=== PATIENT | female | born 1960 | race African-American/Black ===

== ENCOUNTER 2025-01-03 14:35 | Outpatient (AMB) | payer MEDICARE, MEDICAID, SELFPAY ==
--- NOTE | 2025-01-03 14:42 | A.PHYSOV_ITS ---
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: No Allergies aspirin (ASA) Allergy (Unknown, Verified 01/03/25 14:44) GI, HIVES, throat swelling ibuprofen (From MOTRIN) Allergy (Unknown, Verified 01/03/25 14:44) SWELLING NSAIDS (Non-Steroidal Anti-Inflamma (NSAIDS (NON-STEROIDAL ANTI-INFLAMMA) Allergy (Unknown, Verified 01/03/25 14:44) GI,BURNING IN STOMACH NSAIDS Allergy (Unknown, Uncoded 01/03/25 14:44) Unknown Medication List - Last Reconciled 01/03/25 by Jed Brumfield DO albuterol sulfate 90 mcg/actuation 2 puffs inhalation Q6H PRN anastrozole 1 mg PO DAILY azelastine 1 spray intranasal BID calcium carbonate-vitamin D3 500 mg-5 mcg (200 unit) (Oyster Shell Calcium- Vitamin D3) 1 tab PO DAILY cholecalciferol (vitamin D3) (Vitamin D3) 25 mcg PO DAILY fentanyl 50 mcg/hr 1 patch topical Q OTHER DAY fluticasone propionate 50 mcg/actuation 1 spray intranasal BID folic acid 1 mg PO DAILY ketotifen fumarate 0.025%(0.035%) 1 drp ophthalmic (eye) BID PRN lidocaine 5% 1 patch topical DAILY PRN loratadine 10 mg PO DAILY PRN metoprolol succinate ER 12.5 mg PO DAILY mometasone 0.1% appl topical montelukast 10 mg PO BEDTIME morphine 15 mg PO QID olopatadine 0.1% 1 drp ophthalmic (eye) BID pregabalin 75 mg PO TID HPI Comments Details: History of Present Illness The patient is a 64-year-old female presenting with chronic pain management. She has been receiving narcotic pain management and has undergone multiple lumbar and cervical injections, including bilateral L4 transforaminal injections on May 01, 2024, and a cervical C7-T1 epidural injection on November 01, 2023. Her medication regimen includes fentanyl patches and immediate release morphine sulfate for breakthrough pain, with a recent discontinuation of slow-release morphine sulfate. The patient was informed of a positive biopsy for active cancer on September 03, 2024, and has scheduled follow-up appointments with her oncologist. She has undergone radiation therapy for a month and reports that the pain she experienced prior to surgery has subsided. The patient believes the pain was related to the cancer, as it disappeared following the removal of affected lymph nodes. 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 She describes a strong vibration sensation down the side of her neck, across the top of her head, and down the back on the left side, which she attributes to nerve involvement. The patient has not required neck injections for over a year, but she is considering them due to persistent symptoms. Her lumbar symptoms have been controlled better recently, unfortunately neck pain was severe a couple of months ago and continues to be quite disturbing none at this time. She reports radicular symptoms primarily on the left side. Pain Description - Onset and Timing: Chronic pain, persistent over time - Quality and Character: Described as a strong vibration sensation - Primary Location: Neck, with radiation across the top of the head and down the back on the left side - Exacerbating Factors: Prolonged positioning, such as sleeping in the same position - Relieving Factors: Pain subsided after radiation therapy and lymph node removal - Interference with Activities: Requires readjustment when using a phone due to pain Results - Imaging: MRI performed for worker's compensation case - Biopsy: Positive for active cancer [facility] Medical History (Updated 01/03/25 @ 15:43 by Jed Brumfield DO) Drug-induced polyneuropathy Lumbar radiculitis Neuropathy associated with malignant neoplasm Chronic pain syndrome Cervical radiculitis Surgical History History of cataract extraction (Unknown) History of mastectomy (Unknown) History of cancer surgery (Unknown) History of delivery (Unknown) Social History Alcohol intake: current Alcohol intake frequency: does not drink Patient Tobacco Use Status: Never used Tobacco Use of substances other than those prescribed or required for medical reasons: No Current occupational status: retired Review of Systems Narrative Review of Systems - Musculoskeletal: Reports chronic neck pain with radiation and vibration sensation - Neurological: Reports strong vibration sensation in neck and head Denies change in bowel bladder habits, denies fever or chills Physical Exam Exam Exam: Physical Exam Patient appears to be in no acute distress, appropriately conversant and oriented. She ambulates with a walker. Gait was waddling without antalgia. Lumbar range of motion was restricted in extension. Cervical range of motion was restricted in all planes. Spurling maneuver was positive on the left side. Lhermitte sign was negative. Both shoulders demonstrate normal range of motion today. Neurological examination of upper and lower extremities was nonfocal. Patient demonstrated an upper motor neuron signs. Vital Signs: BMI result Body Mass Index 43.4 Assessment & Plan Assessment & Plan (1) Cervical radiculitis: Code(s): M54.12 - Radiculopathy, cervical region Category: Medical (2) Chronic pain syndrome: Code(s): G89.4 - Chronic pain syndrome Category: Medical (3) Neuropathy associated with malignant neoplasm: Code(s): C80.1 - Malignant (primary) neoplasm, unspecified; G63 - Polyneuropathy in diseases classified elsewhere Category: Medical (4) Lumbar radiculitis: Code(s): M54.16 - Radiculopathy, lumbar region Category: Medical (5) Drug-induced polyneuropathy: Code(s): G62.0 - Drug-induced polyneuropathy Category: Medical Plan Pain Management - Affect: Pain impacts daily activities and requires medication management - Analgesia: Currently on fentanyl patches and immediate release morphine sulfate - Adverse Effects: Unable to tolerate oxycodone or oxycodone-containing medications - Activities of Daily Living: Pain affects ability to maintain prolonged positions - Aberrant Drug Related Behaviors: No aberrant behaviors reported Plan Patient was informed and verbally consented to the use of an ambient scribe for clinic note documentation during this visit. 1. Chronic Pain The patient will continue with her current pain management regimen, including fentanyl patches and immediate release morphine sulfate for breakthrough pain. Consideration for cervical epidural injections at C7-T1 to address persistent neck pain and vibration sensation. 2. Active Cancer The patient is under the care of an oncologist and has completed radiation therapy. Follow-up appointments with oncology are scheduled to monitor the statu s of her cancer. 3. Neural Foraminal Stenosis The patient reports persistent symptoms related to neural foraminal stenosis, including neck pain and vibration sensation. Consideration for cervical epidural injections to alleviate symptoms. Discussion Notes During the visit, we discussed the management of the patient's chronic pain, including the continuation of her current medication regimen with fentanyl patches and immediate release morphine sulfate. We also considered the option of cervical epidural injections to address her persistent neck pain and vibration sensation. The patient is aware of her active cancer diagnosis and is following up with her oncologist for ongoing management and monitoring. Patient Instructions - Continue using fentanyl patches and immediate release morphine sulfate as prescribed. - Follow up with your oncologist as scheduled for cancer management. - Consider cervical epidural injections if neck pain persists. - Report any new or worsening symptoms to your healthcare provider. Orders: Referrals Physiatry Procedure Notification M54.12 - Radiculopathy, cervical region Medications: New morphine Partial fill upon request 15 mg (1/2 x 30 mg) PO QID PRN 60 tabs 0RF pain 30 days C80.1 - Malignant (primary) neoplasm, unspecified, G63 - Polyneuropathy in diseases classified elsewhere, G89.4 - Chronic pain syndrome, M54.12 - Radiculopathy, cervical region, M54.16 - Radiculopathy, lumbar region fentanyl 50 mcg/hr Partial fill upon request 1 patch topical Q OTHER DAY 15 ea 0RF pain 30 days C80.1 - Malignant (primary) neoplasm, unspecified, G63 - Polyneuropathy in diseases classified elsewhere, G89.4 - Chronic pain syndrome, M54.12 - Radiculopathy, cervical region, M54.16 - Radiculopathy, lumbar region Coding Level of Care Code Est Pt Level 4 (55287) Complex EM visit Add On G2211 Diagnoses Cervical radiculitis M54.12 Chronic pain syndrome G89.4 Neuropathy associated with malignant neoplasm C80.1; G63 Lumbar radiculitis M54.16 Drug-induced polyneuropathy G62.0
[2025-01-03 14:43] VITALS: BMI 43.4
--- OUTSIDE RECORDS SUMMARY | 2025-01-03 17:59 | XMS_ITS ---
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 Name Role Phone Lillian Bowman MD Primary Care Provider [phone] Active Problems Problem Noted Date Diagnosed Date Malignant neoplasm of upper- outer quadrant of right breast in female, estrogen receptor positive ([facility] V24, [facility] V28) 10/18/2024 Malignant neoplasm of lower- outer quadrant of right breast of female, estrogen receptor positive ([facility] V24, [facility] V28) 09/05/2024 Cancer Staging:Pathologic:Stage IA(pT1c, pN1a, cM0, G2, ER+, ID+, HER2: Equivocal) - Unsigned Non-small cell lung cancer m etastatic to brain ([facility] V24, [facility] V28) 02/09/2024 Malignant neoplasm of upper lobe of right lung ([facility] V24, [facility] V28) 12/04/2016 Current Treatment and Therapy Plans CENTRAL VENOUS ACCESS ( CVA ) MAINTENANCE / BLOOD DRAW / CATHETER CLEARANCE / DRESSING CHANGE / FLUSH* Plan Start Date:10/16/2024 Plan Provider:Shala Mckay DO Linked Problems Malignant neoplasm of upper lobe of right lung ([facility] V24, [facility] V28)Non- small cell lung cancer metastatic to brain ([facility] V24, [facility] V28) Treatment Medications No medications scheduled. Past Treatment and Therapy Plans No past plan information found. Current Radiation Episodes * Radiation Therapy: BreastOverview* First Treatment Date Latest Treatment Date Treatment Site Technique Goal Episode Provider 11/08/2024 12/10/2024 Breast Curative Kyle Ray MD * Linked Problems Treatment Courses* Course 2 11/08/2024 - 12/10/2024 Treatment Sites Treatment Period Fraction Dose Fractions Total Dose Right Breast Boost 12/04/2024 - 12/10/2024 250 / 250 cGy 1,000 / 1,000 cGy Rt Breast 11/08/2024 - 12/03/2024 267 / 267 cGy 4,272 / 4,272 cGy
--- OUTSIDE RECORDS SUMMARY | 2025-01-03 17:59 | XMS_ITS | Encounter Summary ---
Author Organization [facility] Address [address] [place] [address] Care Team Providers Care Enterprise Application Administrator Name Role Phone Lillian Bowman MD Primary Care Provider [phone] Encounter Details Date Type Department Care Team (Late Contact Info) Description 04/24/2024 Lab Requisition [facility] - Main Lab [address] [facility] [place] [address] Jason Ordaz MD [address] [address] Urinary tract infection, site not specified; Hydronephrosis with renal and ureteral calculous obstruction Social History Tobacco Use Types Packs/Day Years Used Date Smoking Tobacco: Never Smokeless Tobacco: Never Alcohol Use Standard Drinks/Week Comments No 0 (1 standard drink = 0.6 oz pur e alcohol) Comments Unknown Sex and Gender Information Value Date Recorded Sex Assigned at Female 03/09/2024 1:17 PM EST Legal Sex Female 10:38 AM EST Gender Identity Female 03/09/2024 1:17 PM EST Sexual Orientation Straight 03/09/2024 1: 17 PM EST documented as of this encounter Plan of Treatment Upcoming Encounters Date Type Department Care Team (Late Contact Info) Description 01/30/2025 2:15 PM EST Office Visit Breast [facility] [address] [place] [address] Alana Valdez MD [address] [place] [address] 02/05/2025 2:15 PM EST Office Visit [facility] Hematology Oncology [address] [place] [phone] Shala Mckay DO [address] [place] [address] 02/05/2025 2:30 PM EST Appointment [facility] Infusion Center [address] [phone] 02/05/2025 3:00 PM EST Appointment [facility] Radiation Oncology [address] [place] [phone] Kyung Howell NP [address] [place], [place] [phone] documented as of this encounter Procedures Procedure Name Priority Date/Time Associated Diagnosis Comments CULTURE URINE Routine 04/24/2024 4:36 PM EST Urinary tract infection, site not specified Hydronephrosis with renal and ureteral calculous obstruction documented in this encounter Results * Culture urine (04/24/2024 4:36 PM EST) Culture, Urine No growth 04/25/2024 2:25 PM EST [facility] Urine Urine specimen obtained by clean catch procedure / Unknown 04/24/2024 4:36 PM EST 04/24/2024 6:15 PM EST us Jason Ordaz MD LAB MICROBIOLOGY - GENERA L ORDERABLES Final Result [facility] [address] [place] [address], documented in this encounter Visit Diagnoses Diagnosis Urinary tract infection, site not specified Hydronephrosis with renal and ureteral calculous obstruction documented in this encounter Care Teams Enterprise Application Administrator Relationship Specialty Start Date End Date Lillian Bowman MD [address] [place], [place] [phone] PCP - General Internal Medicine 05/17/24 documented as of this encounter
--- OUTSIDE RECORDS SUMMARY | 2025-01-03 17:59 | XMS_ITS | Patient Health Record ---
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 Name Role Phone Odell (RETIRED) Jose C NDIAYE Primary Care Provider Unavailable Gerardo Canales Jr Unavailable Allergies Allergen (clinical drug ingredient) Drug/Non Drug Allergy documented on EMR Reaction Allergy Type Onset Date Status Motrin Unknown Drug Allergy Active Lactose Unknown Drug Allergy Active aspirin Aspirin Unknown Drug Allergy Active Reason For Referral No Information Medications Medication SIG (Take, Route, Frequency, Duration) Notes Start Date End Date Status fentaNYL Citrate 100 MCG 1 tablet under the tongue as needed Bucally Four times a day Active Tamoxifen Citrate 20 MG 1 tablet Orally Once a day Active traMADol HCl 50 MG 1 tablet as needed Orally every 6 hrs Active Omeprazole 20 MG 1 capsule Orally Onc e a day Active Gabapentin 300 MG 1 capsule Orally Thr ee times a day Active Atenolol 25 MG 1 tablet Orally Once a day Active Colyte with Flavor Packs 240 GM As directed Orally Over the specified time.; Duration: 1 day(s) 08/22/2014 Active Zolpidem Tartrate Ac tive LORazepam Active ZyrTEC Allergy 10 MG 1 tablet as needed Orally Once a day Active Cyclobenzaprine HCl 5 MG 1 tablet Orally Three times a day Active Chlorzoxazone 500 MG 1 [address] Orally [address] ee times a day Active Problems Problem Type SNOMED Code ICD Code Onset Dates Problem Status W/U Status Risk Notes Problem Colon cancer screening (653996004) Colon cancer screening (V76.51) Active confirmed Problem Gastrointestinal tract problem (001076479) Abn findings-GI tract (793.4) Active confirmed Plan Of Treatment Future Test Test Name Order Date UPPER GI ENDOSCOPY 08/22/2014 COLONOSCOPY 08/22/2014 Insurance Providers Payer Name Payer Address Payer Phone Subscriber Number Group Number Insured Name Patient Relationship to Insured Coverage Start Date Coverage End Date [facility] [address] [address] [place], [place] [id number] CHRISTIANO CARABALLO Self - patient is the insured Medical (General) History Medical History History ICD Code fibromyalgia breast cancer asthma Surgical History Surgery Date(Month/Year) mastectomy-left breast 01/2012 section breast reduction 11/2011
--- OUTSIDE RECORDS SUMMARY | 2025-01-03 17:59 | XMS_ITS | Clinical Summary ---
Author Organization [facility] Address [address] [place] [address] Care Team Providers Care Belly Packer Name Role Phone Abelardo Cooley MD Primary Care Provider [phone] Allergies Active Allergy Reactions Criticality Noted Date Comments Aspirin Anaphylaxis High 11/30/2016 Ibuprofen Anaphylaxis High 11/30/2016 Lactose Other (See Comments) 07/07/2017 Other reaction(s): diarrhea, nausea Abdominal pain Nsaids 05/17/2023 Medications Medication Sig Dispensed Refills Start Date End Date Status folic acid (FOLVITE) tablet 1 mg take 1 tablet by mouth once daily 30 tablet 3 09/12/2017 Active montelukast (SINGULAIR) 10 MG tablet Take 1 tablet (10 mg total) by mouth every night at bedtime. 0 Active metoprolol tartrate (LOPRESSOR) 12.5 MG split tablet Take 1 split tablet (12.5 mg total) by mouth daily. 12.5mg 0 Active Lidocaine 4 % PTCH Apply topically. 0 Active Morphine Sulfate ER (MS CONTIN) 15 MG TBCR Take 1 tablet (15 mg total) by mouth every 12 (twelve) hours. 60 tablet 0 05/14/2020 Active morphine (MSIR) 15 MG tablet Take 1 tablet (15 mg total) by mouth 4 (four) times a day. 60 tablet 0 06/17/2020 Active Morphine Sulfate ER (MS CONTIN) 30 MG TBCR Take 1 tablet (30 mg total) by mouth every 12 (twelve) hours. 60 tablet 0 06/17/2020 Active fentaNYL (DURAGESIC) 50 MCG/HR Place 1 patch onto the skin every third day. 10 patch 0 08/07/2020 Active pregabalin (LYRICA) capsule 50 mg Take 1 capsule (50 mg total) by mouth 2 (two) times a day. 0 Active omeprazole (PriLOSEC) 20 MG capsule Take 1 capsule (20 mg total) by mouth daily. 0 Active albuterol (PROVENTIL) (2.5 MG/3ML) 0.083% nebulizer solution Take 3 mL (2.5 mg total) by nebulization every 6 (six) hours as needed for wheezing. 0 Active lidocaine-prilocai ne (EMLA) cream APPLY TO AFFECTED AREA EVERY DAY NEEDED 30 g 1 02/22/2023 Active Cholecalciferol (Vitamin D) 25 MCG (1000 UT) TABS Take 1 tablet by mouth daily. 90 tablet 0 11/22/2023 Active Active Problems Problem Noted Date Diagnosed Date Malignant neoplasm of overlapping sites of lung 12/04/2016 Family History Medical History Relation Name Comments Diabetes Father Cancer Mother lung Relation Name Status Comments Father Mother Social History Tobacco Use Types Packs/Day Years Used Date Smoking Tobacco: Never Smokeless Tobacco: Never Alcohol Use Standard Drinks/Week Comments No 0 (1 standard drink = 0.6 oz pur e alcohol) Sex and Gender Information Value Date Recorded Sex Assigned at Female 07/30/2022 8:28 AM EDT Gender Identity Not on file Sexual Orientation Not on file Job Start Date Occupation Industry Not on file Not on file Not on file Last Filed Vital Signs Vital Sign Reading Time Taken Comments Blood Pressure 136/68 11/15/2023 2:55 PM EDT Pulse 90 11/15/2023 2:55 PM EDT Temperature 36.4 C (97.5 F) 11/15/2023 2:55 PM EDT Respiratory Rate - - Oxygen Saturation 99% 11/15/2023 2:55 PM EDT 2L 02 Inhaled Oxygen Concentration - - Weight 112 kg (247 lb) 11/15/2023 2:55 PM EDT Height 160 cm (5' 3 ) 11/15/2023 2:55 PM EDT Body Mass Index 43.75 11/15/2023 2:55 PM EDT Plan of Treatment Health Maintenance Due Date Last Done Comments Hepatitis C Screening 1960 COVID-19 Vaccine (#1) 04/28/1964 Depression Screening 1971 BMI Counseling 04/28/1977 Preventative Health Evaluation 04/28/1977 DTap / Tdap / Td (1 - Tdap) 04/28/1978 Shingrix-Zoster Vaccine (1 of 2) 04/28/1978 Cervical Cancer Screening (P ap Smear) 04/28/1980 Colon Cancer Screening (Colonoscopy) 04/28/2004 Breast Cancer Screening (Mammogram) 04/28/2009 Pneumococcal Vaccine (2 of 2 - PCV) 01/20/2017 01/21/2016 Pneumococcal Vaccine (2 of 2 - PCV) 01/20/2017 01/21/2016 Fall Risk Assessment 04/28/2024 Osteoporosis Screening (DEXA Scan) 04/28/2024 Influenza Vaccine (#1) 2024 RSV Adult > 60+ Yrs or Pregn ant (1 - 1-dose 75+ series) 04/28/2034 Hepatitis B Vaccines Aged Out No long er eligible based on patient's age to complete this topic RSV Ped < 20 months Aged Out No longe r eligible based on patient's age to complete this topic Insurance Payer Benefit Plan / Group Subscriber ID Effective Dates Phone Address [facility] [id number] 2022-Present [address] [facility] [address] [place] [address] [facility] [place] Belly Packer Relationship Specialty Start Date End Date Abelardo Cooley MD [address] [address] PCP - General Internal Medicine 11/30/16
--- OUTSIDE RECORDS SUMMARY | 2025-01-03 17:59 | XMS_ITS | Clinical Summary ---
Author Organization [facility] Address [address] [place] [address] Phone Care Team Providers Care Screw Supervisor Name Role Phone Lillian Bowman MD Primary Care Provider [phone] Allergies Active Allergy Reactions Criticality Noted Date Comments Aspirin Anaphylaxis,Other High 11/30/2016 Throat swelling Ibuprofen Anaphylaxis,Other High 11/30/2016 Throat swelling Any NSAIDS Lactose Other Low 07/07/2017 Other reaction(s): diarrhea, nausea Abdominal pain Nsaids (Non-Steroidal Anti-Inflammatory Drug) Anaphylaxis High 05/17/2023 Medications albuterol 2.5 mg /3 mL (0.083 %) nebulizer solution 3 mL (2.5 mg total) every 6 (six) hours if needed. Active fentaNYL (DURAGESIC) 50 mcg/hr 1 patch 2 (two) times a day if needed. 07/05/19 21 Active folic acid (FOLVITE) 1 mg tablet Take 1 tablet (1 mg total) by mouth 1 (one) time each day. 09/13/19 18 Active lidocaine 4 % patch 1 patch 1 (one) time each day if needed. Active lidocaine-pril ocaine (EMLA) 2.5-2.5 % cream APPLY TO AFFECTED AREA EVERY DAY NEEDED 02/22/19 24 Active metoprolol tartrate (LOPRESSOR) 25 mg tablet Take 0.5 tablets (12.5 mg total) by mouth 2 (two) times a day. Active montelukast (SINGULAIR) 10 mg tablet Take 1 tablet (10 mg total) by mouth at bedtime. Active morphine (MSIR) 15 mg tablet 04/05/19 Active morphine (MS CONTIN) 15 mg 12 hr tablet 1 tablet (15 mg total) at bedtime as needed (pt can have morphine 2x a day only takes at bedtime). 05/15/19 Active morphine (MS CONTIN) 30 mg 12 hr tablet Take 1 tablet (30 mg total) by mouth every 12 (twelve) hours. 06/18/19 Active omeprazole (PriLOSEC) [address] capsule 1 capsule (20 mg total) 1 (one) time each day if needed. Active pregabalin (LYRICA) 50 mg capsule Take 3 capsules (150 mg total) by mouth at bedtime. 07/18/19 Active anastrozole (ARIMIDEX) 1 mg Take 1 tablet (1 mg total) by mouth 1 (one) time each day Swallow whole with a drink of water. 90 tablet 3 11/21/19 25 026 Active calcium carbonate-uma min D 500 mg-5 mcg (200 unit) per tablet Take 1 tablet by mouth 1 (one) time each day. 30 each 11 11/21/19 25 026 Active mometasone (ELOCON) 0.1 % creamIndicatio ns:Radiation dermatitis Apply topically 2 (two) times a day for 28 days. Apply to radiation treatment field on RIGHT WHOLE BREAST. Then apply home moisturizing cream as needed. 45 g 1 11/24/19 25 Active Vitamin D3 25 mcg (1,000 unit) tablet TAKE 1 TABLET BY MOUTH EVERY DAY 90 tablet 01/01/20 25 Active Vitamin D3 25 mcg (1,000 unit) tablet TAKE 1 TABLET BY MOUTH EVERY DAY 90 tablet 10/02/19 25 025 Discontinued Active Problems Problem Noted Date Diagnosed Date Malignant neoplasm of upper- outer quadrant of right breast in female, estrogen receptor positive (CMS/HCC V24, CMS/HCC V28) 10/18/2024 Malignant neoplasm of lower- outer quadrant of right breast of female, estrogen receptor positive (CMS/HCC V24, CMS/HCC V28) 09/05/2024 Cancer Staging:Pathologic:Stage IA(pT1c, pN1a, cM0, G2, ER+, MA+, HER2: Equivocal) - Unsigned Non-small cell lung cancer m etastatic to brain ([facility] V24, [facility] V28) 02/09/2024 Malignant neoplasm of upper lobe of right lung ([facility] V24, [facility] V28) 12/04/2016 Encounters Date Type Department Care Team Description 12/10/2024 2:50 PM EDT - 12/10/2024 11:59 PM EDT Hospital Encounter [facility] Radiation Oncology [address] [place] [phone] Kyung Howell, GUALBERTO Malignant neoplasm of lower-outer quadrant of right breast of female, estrogen receptor positive ([facility] V24, [facility] V28) (Primary Dx) Discharge Disposition: Home or Self Care 12/10/2024 2:09 PM EDT - 12/10/2024 11:59 PM EDT Hospital Encounter [facility] Radiation Oncology [address] [place] [phone] Discharge Disposition: Home or Self Care 12/07/2024 2:30 PM EDT - 12/07/2024 11:59 PM EDT Hospital Encounter [facility] Radiation Oncology [address] [place] [phone] Kyle Ray MD Malignant neoplasm of lower-inner quadrant of right breast of female, estrogen receptor positive ([facility] V24, [facility] V28) (Primary Dx) Discharge Disposition: Home or Self Care 12/07/2024 2:15 PM EDT - 12/07/2024 11:59 PM EDT Hospital Encounter [facility] Radiation Oncology [address] [place] [phone] Discharge Disposition: Home or Self Care 12/06/2024 1:56 PM EDT - 12/06/2024 11:59 PM EDT Hospital Encounter [facility] Radiation Oncology [address] [place] [phone] Discharge Disposition: Home or Self Care 12/04/2024 2:45 PM EDT - 12/04/2024 11:59 PM EDT Hospital Encounter [facility] Radiation Oncology [address] [place] [phone] Davy Ryder MD Discharge Disposition: Home or Self Care 12/04/2024 2:27 PM EDT - 12/04/2024 11:59 PM EDT Hospital Encounter [facility] Radiation Oncology [address] [place] [phone] Discharge Disposition: Home or Self Care 12/03/2024 2:40 PM EDT - 12/03/2024 11:59 PM EDT Hospital Encounter [facility] Radiation Oncology [address] [place] [phone] Kyle Ray MD Malignant neoplasm of lower-inner quadrant of right breast of female, estrogen receptor positive (CMS/HCC V24, CMS/HCC V28) (Primary Dx) Discharge Disposition: Home or Self Care 12/03/2024 2:03 PM EDT - 12/03/2024 11:59 PM EDT Hospital Encounter [facility] Radiation Oncology [address] [place] [phone] Discharge Disposition: Home or Self Care 11/30/2024 2:06 PM EDT - 11/30/2024 11:59 PM EDT Hospital Encounter [facility]iation Oncology [address] [place] [phone] Discharge Disposition: Home or Self Care 11/29/2024 2:01 PM EDT - 11/29/2024 11:59 PM EDT Hospital Encounter [facility] Radiation Oncology [address] [place] [phone] Discharge Disposition: Home or Self Care 11/28/2024 2:12 PM EDT - 11/28/2024 11:59 PM EDT Hospital Encounter [facility] Radiation [facility]cology [address] [place] [phone] Discharge Disposition: Home or Self Care 11/27/2024 2:30 PM EDT - 11/27/2024 11:59 PM EDT Hospital Encounter [facility] Radiation Oncology [address] [place] [phone] Discharge Disposition: Home or Self Care 11/27/2024 11:38 AM EDT - 11/27/2024 11:59 PM EDT Hospital Encounter [facility] Radiation Oncology [address] [place] [phone] Discharge Disposition: Home or Self Care 11/26/2024 2:12 PM EDT - 11/26/2024 11:59 PM EDT Hospital Encounter [facility] Radiation Oncology [address] [place] [phone] Discharge Disposition: Home or Self Care 11/23/2024 2:40 PM EDT - 11/23/2024 11:59 PM EDT Hospital Encounter [facility] Radiation Oncology [address] [place] [phone] Kyle Ray MD Malignant neoplasm of lower-inner quadrant of right breast of female, estrogen receptor positive (CMS/HCC V24, CMS/HCC V28) (Primary Dx) Discharge Disposition: Home or Self Care 11/23/2024 2:06 PM EDT - 11/23/2024 11:59 PM EDT Hospital Encounter [facility] Radiation Oncology [address] [place] [phone] Discharge Disposition: Home or Self Care 11/22/2024 2:06 PM EDT - 11/22/2024 11:59 PM EDT Hospital Encounter [facility] Radiation Oncology [address] [place] [phone] Discharge Disposition: Home or Self Care 11/21/2024 2:06 PM EDT - 11/21/2024 11:59 PM EDT Hospital Encounter [facility] Radiation Oncology [address] [place] [phone] Discharge Disposition: Home or Self Care 11/20/2024 3:00 PM EDT - 11/20/2024 11:59 PM EDT Hospital Encounter [facility] [address] [place] [phone] Shala Mckay DO Malignant neoplasm of lower-outer quadrant of right breast of female, estrogen receptor positive (CMS/HCC V24, CMS/HCC V28) (Primary Dx); Malignant neoplasm of upper lobe of right lung (CMS/HCC V24, CMS/HCC V28); Non-small cell lung cancer metastatic to brain ([facility] V24, [facility] V28) Discharge Disposition: Home or Self Care 11/20/2024 2:30 PM EDT Office Visit [facility] Hematology Oncology [address] [place] [phone] Shala Mckay DO Malignant neoplasm of right breast in female, estrogen receptor positive, unspecified site of breast ([facility] V24, [facility] V28) (Primary Dx); Malignant neoplasm of upper lobe of right lung ([facility] V24, [facility] V28); Osteopenia of neck of femur, unspecified laterality; Vitamin D deficiency 11/20/2024 1:08 PM EDT - 11/20/2024 11:59 PM EDT Hospital Encounter [facility] Radiation Oncology [address] [place] [phone] Discharge Disposition: Home or Self Care 11/19/2024 2:15 PM EDT - 11/19/2024 11:59 PM EDT Hospital Encounter [facility] Radiation Oncology [address] [place] [phone] Discharge Disposition: Home or Self Care 11/16/2024 2:29 PM EDT - 11/16/2024 11:59 PM EDT Hospital Encounter [facility] Radiation Oncology [address] [place] [phone] Kyle Ray MD Malignant neoplasm of lower-inner quadrant of right breast of female, estrogen receptor positive ([facility] V24, [facility] V28) (Primary Dx) Discharge Disposition: Home or Self Care 11/16/2024 2:02 PM EDT - 11/16/2024 11:59 PM EDT Hospital Encounter [facility] Radiation Oncology [address] [place] [phone] Discharge Disposition: Home or Self Care 11/15/2024 2:12 PM EDT - 11/15/2024 11:59 PM EDT Hospital Encounter [facility] Radiation Oncology [address] [place] [phone] Discharge Disposition: Home or Self Care 11/14/2024 2:45 PM EDT - 11/14/2024 11:59 PM EDT Hospital Encounter [facility] Radiation Oncology [address] [place] [phone] Discharge Disposition: Home or Self Care 11/14/2024 2:15 PM EDT - 11/14/2024 11:59 PM EDT Hospital Encounter [facility] Radiation Oncology [address] [place] [phone] Kyle Ray MD Malignant neoplasm of lower-inner quadrant of right breast of female, estrogen receptor positive (CMS/HCC V24, CMS/HCC V28) (Primary Dx) Discharge Disposition: Home or Self Care 11/12/2024 2:56 PM EDT - 11/12/2024 11:59 PM EDT Hospital Encounter [facility] Ultrasound [address] [place] [phone] Malignant neoplasm of lower-outer quadrant of right breast of female, estrogen receptor positive (CMS/HCC V24, CMS/HCC V28) Discharge Disposition: Home or Self Care 11/12/2024 2:13 PM EDT - 11/12/2024 11:59 PM EDT Hospital Encounter [facility] Radiation Oncology [address] [place] [phone] Kyle Ray MD Malignant neoplasm of lower-inner quadrant of right breast of female, estrogen receptor positive (CMS/HCC V24, CMS/HCC V28) (Primary Dx) Discharge Disposition: Home or Self Care 11/12/[address] [phone] Linda Mcrae RN 11/09/2024 2:19 PM EDT - 11/09/2024 11:59 PM EDT Hospital Encounter [facility] Radiation Oncology [address] [place] [phone] Discharge Disposition: Home or Self Care 11/08/2024 2:45 PM EDT - 11/08/2024 11:59 PM EDT Hospital Encounter [facility] Radiation Oncology [address] [place] [phone] Kyle aRy MD Discharge Disposition: Home or Self Care 11/08/2024 2:40 PM EDT - 11/08/2024 11:59 PM EDT Hospital Encounter [facility] Radiation Oncology [address] [place] [phone] Kyle Ray MD Malignant neoplasm of lower-inner quadrant of right breast of female, estrogen receptor positive (CMS/HCC V24, CMS/HCC V28) (Primary Dx) Discharge Disposition: Home or Self Care 11/08/2024 2:16 PM EDT - 11/08/2024 11:59 PM EDT Hospital Encounter [facility] Radiation Oncology [address] [place] [phone] Discharge Disposition: Home or Self Care 11/02/2024 8:12 AM EDT - 11/02/2024 11:59 PM EDT Hospital Encounter [facility] Radiation Oncology [address] [place] [phone] Discharge Disposition: Home or Self Care 11/01/2024 1:00 PM EDT - 11/01/2024 11:59 PM EDT Hospital Encounter [facility] Radiation Oncology [address] [place] [phone] July Montesinos MD Malignant neoplasm of upper-outer quadrant of right breast in female, estrogen receptor positive (CMS/HCC V24, CMS/HCC V28) Discharge Disposition: Home or Self Care 11/01/2024 10:59 AM EDT - 11/01/2024 11:59 PM EDT Hospital Encounter [facility] Radiation Oncology [address] [place] [phone] Malignant neoplasm of upper-outer quadrant of right breast in female, estrogen receptor positive (CMS/HCC V24, CMS/HCC V28) (Primary Dx) Discharge Disposition: Home or Self Care 11/01/2024 9:48 AM EDT - 11/01/2024 11:59 PM EDT Hospital Encounter [facility] Bone Density [address] [place] [phone] Malignant neoplasm of right breast in female, estrogen receptor positive, unspecified site of breast (CMS/HCC V24, CMS/HCC V28); Malignant neoplasm of upper lobe of right lung (CMS/HCC V24, CMS/HCC V28) Discharge Disposition: Home or Self Care 10/29/2024 Telephone [facility] Hematology Oncology [address] [place] [phone] Shala Mckay DO 10/18/2024 1:23 PM EDT - 10/18/2024 11:59 PM EDT Hospital Encounter [facility] Radiation Oncology [address] [place] [phone] July Montesinos MD Malignant neoplasm of upper-outer quadrant of right breast in female, estrogen receptor positive (CMS/HCC V24, CMS/HCC V28) (Primary Dx); Malignant neoplasm of lower-outer quadrant of right breast of female, estrogen receptor positive (CMS/HCC V24, CMS/HCC V28); History of left breast cancer; History of antineoplastic chemotherapy; History of bilateral breast reduction surgery; History of left breast implant; History of cancer metastatic to brain; History of lung cancer; History of lobectomy of lung Discharge Disposition: Home or Self Care 10/18/2024 1:22 PM EDT - 10/18/2024 11:59 PM EDT Hospital Encounter [facility] Radiation Oncology [address] [place] [phone] Discharge Disposition: Home or Self Care 10/16/2024 3:00 PM EDT - 10/16/2024 11:59 PM EDT Hospital Encounter [facility] [address] [place] [phone] Shala Mckay DO Malignant neoplasm of lower-outer quadrant of right breast of female, estrogen receptor positive (CMS/HCC V24, CMS/HCC V28) [C50.511, Z17.0] (Primary Dx); Malignant neoplasm of upper lobe of right lung (CMS/HCC V24, CMS/HCC V28); Non-small cell lung cancer metastatic to brain (CMS/HCC V24, CMS/HCC V28) Discharge Disposition: Home or Self Care 10/16/2024 2:30 PM EDT Office Visit [facility] Hematology Oncology [address] [place] [phone] Shala Mckay DO Malignant neoplasm of right breast in female, estrogen receptor positive, unspecified site of breast ([facility]/HCC V24, [facility] V28) (Primary Dx); Malignant neoplasm of upper lobe of right lung ([facility]/HCC V24, [facility]/HCC V28) 10/16/2024 [facility] Hematology Oncology [address] [place] [phone] Alexia Leone RN 10/11/2024 [facility] Radiation Oncology [address] [place] [phone] Jeanie [place] 10/04/2024 [facility] Radiation Oncology [address] [place] [phone] Jean[place] 10/04/2024 [facility] Radiation Oncology [address] [place] [phone] Jeanie [place] 10/04/2024 [facility] Radiation Oncology [address] [place] [phone] Jeanie [place] 10/03/2024 3:45 PM EDT Office Visit [address] [phone] Alana Valdez MD Malignant neoplasm of lower-outer quadrant of right breast of female, estrogen receptor positive ([facility] V24, [facility] V28) (Primary Dx) 10/03/2024 2:27 PM EDT - 10/03/2024 11:59 PM EDT Hospital Encounter [facility] CT Scan [address] [place] [phone] Malignant neoplasm of upper lobe of right lung ([facility]/HCC V24, [facility] V28); Non-small cell lung cancer metastatic to brain ([facility] V24, [facility] V28) Discharge Disposition: Home or Self Care from Last 3 Months Surgical History Surgery Date Site/Laterality Comments MASTECTOMY Left PROCEDURE:MASTECTOMY LUNG LOBECTOMY Right CRANIOTOMY MA BREAST REDUCTION STEREOTACTIC CORE BIOPSY OTHER SURGICAL HISTORY breast reduction SECTION, LOW TRANSVERSE 2 Medical History Medical History Date Comments Lung cancer ([facility] V24, [facility] V28) stage 4 lung cancer, RIGHT LUNG, CHEMO RADIATION Breast cancer ([facility] V24, [facility] V28) DX:Breast cancer (HCC), LEFT DVT (deep venous thrombosis) ([facility] V24, [facility] V28) DX:DVT (deep venous thrombos is) ([facility]) Fibromyalgia DX:Fibromyalgia GERD (gastroesophageal reflux disease) DX:GERD (gastroesophageal reflux disease) Neuropathy Asthma PTSD (post-traumatic stress disorder) Chronic pain disorder Joint pain Brain cancer ([facility] V24, [facility] V28) Family History Medical History Relation Name Comments Diabetes Father Cancer Mother lung Relation Name Status Comments Father Maternal Grandmother ? [place] Mother Sister 1 sister had ? Lukemia1 sister pancreatic Social History Tobacco Use Types Packs/Day Years Used Date Smoking Tobacco: Former Cigarettes 0 Q uit: 2004 Smokeless Tobacco: Never Tobacco Cessation:Counseling Given: Not Answered Alcohol Use Standard Drinks/Week Comments No 0 (1 standard drink = 0.6 oz pur e alcohol) Comments No Sex and Gender Information Value Date Recorded Sex Assigned at Female 03/09/2024 1:17 PM EST Legal Sex Female 10:38 AM EST Gender Identity Female 03/09/2024 1:17 PM EST Sexual Orientation Straight 03/09/2024 1: 17 PM EST Obstetrics History Para Term AB IAB SAB Ectopic Multiple Livin g Live Births 2 2 Date Outcome GA Total Labor Labor/2nd/3rd Weight Sex Type Anes PTL Willa A1 A5 Name Clin Para Para Last Filed Vital Signs Vital Sign Reading Time Taken Comments Blood Pressure 142/110 11/20/2024 2:38 PM EDT Pulse 99 11/20/2024 2:38 PM EDT Temperature 36.6 C (97.9 F) 11/20/2024 2:38 PM EDT Respiratory Rate 17 10/18/2024 1:44 PM EDT Oxygen Saturation 100% 11/20/2024 2:38 PM EDT Inhaled Oxygen Concentration - - Weight 113 kg (250 lb) 11/20/2024 2:38 PM EDT Height 160 cm (5' 3 ) 11/20/2024 2:38 PM EDT Body Mass Index 44.29 11/20/2024 2:38 PM EDT Plan of Treatment Upcoming Encounters Date Type Department Care Team (Late st Contact Info) Description 01/30/2025 2:15 PM EST Office Visit Breast Care [address] [phone] Alana Valdez MD [address] [place] [phone] 02/05/2025 2:15 PM EST Office Visit [facility] Hematology Oncology [address] [place] [phone] Shala Mckay DO [address] [place] [address] 02/05/2025 2:30 PM EST Appointment [facility] [address] [place] [phone] 02/05/2025 3:00 PM EST Appointment [facility] Radiation Oncology [address] [place] [phone] Kyung Howell NP [address] [place] [address] Health Maintenance Due Date Last Done Comments Colorectal Cancer Screening: Colonoscopy 1960 COVID-19 Vaccine (#1) 04/28/1964 DTaP,Tdap,and Td Vaccines (1 - Tdap) 04/28/1978 Hepatitis A Vaccines (1 of 2 - Risk 2-dose series) 04/28/1978 Zoster Vaccines (1 of 2) 04/28/1978 Cervical Cancer Screening: P ap Smear 04/28/1980 RSV Immunization Adult Patie nts (1 - Risk 50-74 years 1-dose series) 04/28/2009 Pneumococcal Vaccine: 50+ Ye ars (2 of 2 - PCV) 01/20/2017 01/21/2016 Hepatitis B Vaccines (1 of 3 - Risk 3-dose series) 2019 Cholesterol Screening (Lipid Panel) 01/29/2022 Hepatitis C Screening 01/29/2022 Medicare Annual Wellness Visit 01/29/2022 Social Influencers of Health Screening 01/29/2022 Depression Screening 02/22/2024 Influenza Vaccine (#1) 2024 Falls Risk Assessment 09/25/2025 09/25/2024 Breast Cancer Screening 08/02/2026 08/02/2024 Osteoporosis Screening (Bone Density Screening) 11/01/2034 11/01/2024 HIB Vaccines Aged Out No longer eligi ble based on patient's age to complete this topic HPV Vaccines Aged Out No longer eligi ble based on patient's age to complete this topic IPV Vaccines Aged Out No longer eligi ble based on patient's age to complete this topic MMR Vaccines Aged Out No longer eligi ble based on patient's age to complete this topic Meningococcal ACWY Vaccine Aged Out N o longer eligible based on patient's age to complete this topic Meningococcal B Vaccine Aged Out No l onger eligible based on patient's age to complete this topic RSV Immunization Patients Un jalen 20 months Aged Out No longer eligible b ased on patient's age to complete this topic Varicella Vaccines Aged Out No longer eligible based on patient's age to complete this topic Medical Devices Implanted Type Area Seat Cover Installer Device Identifier Shelf Expiration Date Model / Serial / Lot Marker Breast Biopsy 15g Rigid Ti Open Coil Hydromark - [id number] - [id number] Implanted:Qty: 1 on 08/22/2024 by Chacho Meza MD at [facility] Imaging Implants Right: Breast [employer] [id number] 03/05/2027 4010-02- 15-T3 / [id number] / [id number] Marker Breast Biopsy 15g Rigid Ti Barrel Hydromark - [id number] - [id number] Implanted:Qty: 1 on 08/22/2024 by Chacho Meza MD at [facility] Imaging Implants Right: Breast [employer] [id number] 05/16/2027 4010-02- 15-T1 / [id number] / [id number] 3D Marker 18ga Magseed 7cm - [id number] - [id number] Implanted:Qty: 2 on 09/24/2024 by Thom Phan MD at [facility] Imaging Implants Right: Breast [employer] [id number] 04/20/2026 [id number] / [id number] / [id number] Procedures Procedure Name Priority Date/Time Associated Diagnosis Comments RAD ONC MSQ TREATMENT SUMMARY Routine 12/10/2024 2:50 PM EDT RAD ONC MSQ TREATMENT SUMMARY Routine 12/07/2024 2:30 PM EDT RAD ONC MSQ TREATMENT SUMMARY Routine 12/06/2024 2:38 PM EDT RAD ONC MSQ TREATMENT SUMMARY Routine 12/04/2024 2:45 PM EDT RAD ONC MSQ TREATMENT SUMMARY Routine 12/03/2024 2:54 PM EDT RAD ONC MSQ TREATMENT SUMMARY Routine 11/30/2024 2:27 PM EDT RAD ONC MSQ TREATMENT SUMMARY Routine 11/29/2024 2:29 PM EDT RAD ONC MSQ TREATMENT SUMMARY Routine 11/28/2024 2:35 PM EDT RAD ONC MSQ TREATMENT SUMMARY Routine 11/27/2024 2:30 PM EDT RAD ONC MSQ TREATMENT SUMMARY Routine 11/26/2024 2:36 PM EDT RAD ONC MSQ TREATMENT SUMMARY Routine 11/23/2024 2:44 PM EDT RAD ONC MSQ TREATMENT SUMMARY Routine 11/22/2024 2:32 PM EDT RAD ONC MSQ TREATMENT SUMMARY Routine 11/21/2024 2:29 PM EDT RAD ONC MSQ TREATMENT SUMMARY Routine 11/20/2024 1:24 PM EDT RAD ONC MSQ TREATMENT SUMMARY Routine 11/19/2024 2:53 PM EDT RAD ONC MSQ TREATMENT SUMMARY Routine 11/16/2024 2:29 PM EDT RAD ONC MSQ TREATMENT SUMMARY Routine 11/15/2024 2:27 PM EDT RAD ONC MSQ TREATMENT SUMMARY Routine 11/14/2024 2:52 PM EDT US ASP BREAST ABSCESS/HEMATOMA/BU LLA/CYST RIGHT Routine 11/12/2024 3:55 PM EDT Malignant neoplasm of lower-outer quadrant of right breast of female, estrogen receptor positive (CMS/HCC V24, CMS/HCC V28) RAD ONC MSQ TREATMENT SUMMARY Routine 11/09/2024 2:38 PM EDT RAD ONC MSQ TREATMENT SUMMARY Routine 11/08/2024 2:46 PM EDT BD BONE DENSITY DXA AXIAL SKELETON Routine 11/01/2024 10:33 AM EDT Malignant neoplasm of right breast in female, estrogen receptor positive, unspecified site of breast (CMS/HCC V24, CMS/HCC V28) Malignant neoplasm of upper lobe of right lung (CMS/HCC V24, CMS/HCC V28) CT CHEST W CONTRAST Routine 10/03/2024 3 :15 PM EDT Malignant neoplasm of upper lobe of right lung (CMS/HCC V24, CMS/HCC V28) Non-small cell lung cancer metastatic to brain (CMS/HCC V24, CMS/HCC V28) MG MAMMO DIGITAL DIAGNOSTIC W INOCENTE RIGHT Routine 08/02/2024 3:39 PM EDT Malignant neoplasm of overlapping sites of lung, unspecified laterality (CMS/HCC V24, CMS/HCC V28) Personal history of breast cancer from Last 3 Months or Most Recently Relevant to Health Maintenance Results * Rad Onc Msq Treatment Summary (12/10/2024 2:50 PM EDT) Treatment Site Right Breast Boost MOSAIQ RADIATION ONCOLOGY Course Number 2 MOSAIQ RADIATION ONCOLOGY Prescribed Fractional Dose 250 cGray MOSAIQ RADIATION ONCOLOGY Prescribed Total Dose 1,000 cGray MOSAIQ RADIATION ONCOLOGY Actual Fractions Delivered 4 MOSAIQ RADIATION ONCOLOGY Actual Session Delivered Dose 250 cGray MOSAIQ RADIATION ONCOLOGY Actual Total Dose 1,000 cGray MOSAIQ RADIATION ONCOLOGY Prescribed Technique Electron boost MOSAIQ RADIATION ONCOLOGY Elapsed Days 6 MOSAIQ RADIATION ONCOLOGY Start Date 12/04/2024 MOSAIQ RADIATION ONCOLOGY Last Date 12/10/2024 MOSAIQ RADIATION ONCOLOGY Prescribed Number of Fractions 4 MOSAIQ RADIATION ONCOLOGY 12/10/2024 2:50 PM EDT Physician Radiation Oncology RADIATION ONCMEGGAN GY ORDERABLES Final Result MOSAIQ RADIATION ONCOLOGY * Rad Onc Msq Treatment Summary (12/07/2024 2:30 PM EDT) Treatment Site Right Breast Boost MOSAIQ RADIATION ONCOLOGY Course Number 2 MOSAIQ RADIATION ONCOLOGY Prescribed Fractional Dose 250 cGray MOSAIQ RADIATION ONCOLOGY Prescribed Total Dose 1,000 cGray MOSAIQ RADIATION ONCOLOGY Actual Fractions Delivered 3 MOSAIQ RADIATION ONCOLOGY Actual Session Delivered Dose 250 cGray MOSAIQ RADIATION ONCOLOGY Actual Total Dose 750 cGray MOSAIQ RADIATION ONCOLOGY Prescribed Technique Electron boost MOSAIQ RADIATION ONCOLOGY Elapsed Days 3 MOSAIQ RADIATION ONCOLOGY Start Date 12/04/2024 MOSAIQ RADIATION ONCOLOGY Last Date 12/07/2024 MOSAIQ RADIATION ONCOLOGY Prescribed Number of Fractions 4 MOSAIQ RADIATION ONCOLOGY 12/07/2024 2:30 PM EDT Physician Radiation Oncology RADIATION ONCMEGGAN GY ORDERABLES Final Result MOSAIQ RADIATION ONCOLOGY * Rad Onc Msq Treatment Summary (12/06/2024 2:38 PM EDT) Treatment Site Right Breast Boost MOSAIQ RADIATION ONCOLOGY Course Number 2 MOSAIQ RADIATION ONCOLOGY Prescribed Fractional Dose 250 cGray MOSAIQ RADIATION ONCOLOGY Prescribed Total Dose 1,000 cGray MOSAIQ RADIATION ONCOLOGY Actual Fractions Delivered 2 MOSAIQ RADIATION ONCOLOGY Actual Session Delivered Dose 250 cGray MOSAIQ RADIATION ONCOLOGY Actual Total Dose 500 cGray MOSAIQ RADIATION ONCOLOGY Prescribed Technique Electron boost MOSAIQ RADIATION ONCOLOGY Elapsed Days 2 MOSAIQ RADIATION ONCOLOGY Start Date 12/04/2024 MOSAIQ RADIATION ONCOLOGY Last Date 12/06/2024 MOSAIQ RADIATION ONCOLOGY Prescribed Number of Fractions 4 MOSAIQ RADIATION ONCOLOGY 12/06/2024 2:38 PM EDT Physician Radiation Oncology RADIATION ONCOLO GY ORDERABLES Final Result MOSAIQ RADIATION ONCOLOGY * Rad Onc Msq Treatment Summary (12/04/2024 2:45 PM EDT) Treatment Site Right Breast Boost MOSAIQ RADIATION ONCOLOGY Course Number 2 MOSAIQ RADIATION ONCOLOGY Prescribed Fractional Dose 250 cGray MOSAIQ RADIATION ONCOLOGY Prescribed Total Dose 1,000 cGray MOSAIQ RADIATION ONCOLOGY Actual Fractions Delivered 1 MOSAIQ RADIATION ONCOLOGY Actual Session Delivered Dose 250 cGray MOSAIQ RADIATION ONCOLOGY Actual Total Dose 250 cGray MOSAIQ RADIATION ONCOLOGY Prescribed Technique Electron boost MOSAIQ RADIATION ONCOLOGY Elapsed Days 0 MOSAIQ RADIATION ONCOLOGY Start Date 12/04/2024 MOSAIQ RADIATION ONCOLOGY Last Date 12/04/2024 MOSAIQ RADIATION ONCOLOGY Prescribed Number of Fractions 4 MOSAIQ RADIATION ONCOLOGY 12/04/2024 2:45 PM EDT Physician Radiation Oncology RADIATION ONCOLO GY ORDERABLES Final Result MOSAIQ RADIATION ONCOLOGY * Rad Onc Msq Treatment Summary (12/03/2024 2:54 PM EDT) Treatment Site Rt Breast MOSAI Q RADIATION ONCOLOGY Course Number 2 MOSAIQ RADIATION ONCOLOGY Prescribed Fractional Dose 267 cGray MOSAIQ RADIATION ONCOLOGY Prescribed Total Dose 4,272 cGray MOSAIQ RADIATION ONCOLOGY Actual Fractions Delivered 16 MOSAIQ RADIATION ONCOLOGY Actual Session Delivered Dose 267 cGray MOSAIQ RADIATION ONCOLOGY Actual Total Dose 4,272 cGray MOSAIQ RADIATION ONCOLOGY Prescribed Technique Tangents MOSAIQ RADIATION ONCOLOGY Elapsed Days 25 MOSAIQ RADIATION ONCOLOGY Start Date 11/08/2024 MOSAIQ RADIATION ONCOLOGY Last Date 12/03/2024 MOSAIQ RADIATION ONCOLOGY Prescribed Number of Fractions 16 MOSAIQ RADIATION ONCOLOGY 12/03/2024 2:54 PM EDT Physician Radiation Oncology RADIATION ONCOLO GY ORDERABLES Final Result MOSAIQ RADIATION ONCOLOGY * Rad Onc Msq Treatment Summary (11/30/2024 2:27 PM EDT) Pathologist [facility] Treatment Site Rt Breast MOSAI Q RADIATION ONCOLOGY Course Number 2 MOSAIQ RADIATION ONCOLOGY Prescribed Fractional Dose 267 cGray MOSAIQ RADIATION ONCOLOGY Prescribed Total Dose 4,272 cGray MOSAIQ RADIATION ONCOLOGY Actual Fractions Delivered 15 MOSAIQ RADIATION ONCOLOGY Actual Session Delivered Dose 267 cGray MOSAIQ RADIATION ONCOLOGY Actual Total Dose 4,005 cGray MOSAIQ RADIATION ONCOLOGY Prescribed Technique Tangents MOSAIQ RADIATION ONCOLOGY Elapsed Days 22 MOSAIQ RADIATION ONCOLOGY Start Date 11/08/2024 MOSAIQ RADIATION ONCOLOGY Last Date 11/30/2024 MOSAIQ RADIATION ONCOLOGY Prescribed Number of Fractions 16 MOSAIQ RADIATION ONCOLOGY 11/30/2024 2:27 PM EDT Physician Radiation Oncology RADIATION ONCOLO GY ORDERABLES Final Result MOSAIQ RADIATION ONCOLOGY * Rad Onc Msq Treatment Summary (11/29/2024 2:29 PM EDT) [facility] Treatment Site Rt Breast MOSAI Q RADIATION ONCOLOGY Course Number 2 MOSAIQ RADIATION ONCOLOGY Prescribed Fractional Dose 267 cGray MOSAIQ RADIATION ONCOLOGY Prescribed Total Dose 4,272 cGray MOSAIQ RADIATION ONCOLOGY Actual Fractions Delivered 14 MOSAIQ RADIATION ONCOLOGY Actual Session Delivered Dose 267 cGray MOSAIQ RADIATION ONCOLOGY Actual Total Dose 3,738 cGray MOSAIQ RADIATION ONCOLOGY Prescribed Technique Tangents MOSAIQ RADIATION ONCOLOGY Elapsed Days 21 MOSAIQ RADIATION ONCOLOGY Start Date 11/08/2024 MOSAIQ RADIATION ONCOLOGY Last Date 11/29/2024 MOSAIQ RADIATION ONCOLOGY Prescribed Number of Fractions 16 MOSAIQ RADIATION ONCOLOGY 11/29/2024 2:29 PM EDT Physician Radiation Oncology RADIATION ONCOLO GY ORDERABLES Final Result MOSAIQ RADIATION ONCOLOGY * Rad Onc Msq Treatment Summary (11/28/2024 2:35 PM EDT) Pathologist [facility] Treatment Site Rt Breast MOSAI Q RADIATION ONCOLOGY Course Number 2 MOSAIQ RADIATION ONCOLOGY Prescribed Fractional Dose 267 cGray MOSAIQ RADIATION ONCOLOGY Prescribed Total Dose 4,272 cGray MOSAIQ RADIATION ONCOLOGY Actual Fractions Delivered 13 MOSAIQ RADIATION ONCOLOGY Actual Session Delivered Dose 267 cGray MOSAIQ RADIATION ONCOLOGY Actual Total Dose 3,471 cGray MOSAIQ RADIATION ONCOLOGY Prescribed Technique Tangents MOSAIQ RADIATION ONCOLOGY Elapsed Days 20 MOSAIQ RADIATION ONCOLOGY Start Date 11/08/2024 MOSAIQ RADIATION ONCOLOGY Last Date 11/28/2024 MOSAIQ RADIATION ONCOLOGY Prescribed Number of Fractions 16 MOSAIQ RADIATION ONCOLOGY 11/28/2024 2:35 PM EDT Physician Radiation Oncology RADIATION ONCOLO GY ORDERABLES Final Result Performing Organization Address City/[facility]/ZIP Co de Phone Number MOSAIQ RADIATION ONCOLOGY * Rad Onc Msq Treatment Summary (11/27/2024 2:30 PM EDT) [facility] Treatment Site Rt Breast MOSAI Q RADIATION ONCOLOGY Course Number 2 MOSAIQ RADIATION ONCOLOGY Prescribed Fractional Dose 267 cGray MOSAIQ RADIATION ONCOLOGY Prescribed Total Dose 4,272 cGray MOSAIQ RADIATION ONCOLOGY Actual Fractions Delivered 12 MOSAIQ RADIATION ONCOLOGY Actual Session Delivered Dose 267 cGray MOSAIQ RADIATION ONCOLOGY Actual Total Dose 3,204 cGray MOSAIQ RADIATION ONCOLOGY Prescribed Technique Tangents MOSAIQ RADIATION ONCOLOGY Elapsed Days 19 MOSAIQ RADIATION ONCOLOGY Start Date 11/08/2024 MOSAIQ RADIATION ONCOLOGY Last Date 11/27/2024 MOSAIQ RADIATION ONCOLOGY Prescribed Number of Fractions 16 MOSAIQ RADIATION ONCOLOGY 11/27/2024 2:30 PM EDT Physician Radiation Oncology RADIATION ONCOLO GY ORDERABLES Final Result MOSAIQ RADIATION ONCOLOGY * Rad Onc Msq Treatment Summary (11/26/2024 2:36 PM EDT) Pathologist [facility] Treatment Site Rt Breast MOSAI Q RADIATION ONCOLOGY Course Number 2 MOSAIQ RADIATION ONCOLOGY Prescribed Fractional Dose 267 cGray MOSAIQ RADIATION ONCOLOGY Prescribed Total Dose 4,272 cGray MOSAIQ RADIATION ONCOLOGY Actual Fractions Delivered 11 MOSAIQ RADIATION ONCOLOGY Actual Session Delivered Dose 267 cGray MOSAIQ RADIATION ONCOLOGY Actual Total Dose 2,937 cGray MOSAIQ RADIATION ONCOLOGY Prescribed Technique Tangents MOSAIQ RADIATION ONCOLOGY Elapsed Days 18 MOSAIQ RADIATION ONCOLOGY Start Date 11/08/2024 MOSAIQ RADIATION ONCOLOGY Last Date 11/26/2024 MOSAIQ RADIATION ONCOLOGY Prescribed Number of Fractions 16 MOSAIQ RADIATION ONCOLOGY 11/26/2024 2:36 PM EDT Physician Radiation Oncology RADIATION ONCOLO GY ORDERABLES Final Result MOSAIQ RADIATION ONCOLOGY * Rad Onc Msq Treatment Summary (11/23/2024 2:44 PM EDT) [facility] Treatment Site Rt Breast MOSAI Q RADIATION ONCOLOGY Course Number 2 MOSAIQ RADIATION ONCOLOGY Prescribed Fractional Dose 267 cGray MOSAIQ RADIATION ONCOLOGY Prescribed Total Dose 4,272 cGray MOSAIQ RADIATION ONCOLOGY Actual Fractions Delivered 10 MOSAIQ RADIATION ONCOLOGY Actual Session Delivered Dose 267 cGray MOSAIQ RADIATION ONCOLOGY Actual Total Dose 2,670 cGray MOSAIQ RADIATION ONCOLOGY Prescribed Technique Tangents MOSAIQ RADIATION ONCOLOGY Elapsed Days 15 MOSAIQ RADIATION ONCOLOGY Start Date 11/08/2024 MOSAIQ RADIATION ONCOLOGY Last Date 11/23/2024 MOSAIQ RADIATION ONCOLOGY Prescribed Number of Fractions 16 MOSAIQ RADIATION ONCOLOGY 11/23/2024 2:44 PM EDT Physician Radiation Oncology RADIATION ONCMEGGAN GY ORDERABLES Final Result MOSAIQ RADIATION ONCOLOGY * Rad Onc Msq Treatment Summary (11/22/2024 2:32 PM EDT) Pathologist [facility] Treatment Site Rt Breast MOSAI Q RADIATION ONCOLOGY Course Number 2 MOSAIQ RADIATION ONCOLOGY Prescribed Fractional Dose 267 cGray MOSAIQ RADIATION ONCOLOGY Prescribed Total Dose 4,272 cGray MOSAIQ RADIATION ONCOLOGY Actual Fractions Delivered 9 MOSAIQ RADIATION ONCOLOGY Actual Session Delivered Dose 267 cGray MOSAIQ RADIATION ONCOLOGY Actual Total Dose 2,403 cGray MOSAIQ RADIATION ONCOLOGY Prescribed Technique Tangents MOSAIQ RADIATION ONCOLOGY Elapsed Days 14 MOSAIQ RADIATION ONCOLOGY Start Date 11/08/2024 MOSAIQ RADIATION ONCOLOGY Last Date 11/22/2024 MOSAIQ RADIATION ONCOLOGY Prescribed Number of Fractions 16 MOSAIQ RADIATION ONCOLOGY 11/22/2024 2:32 PM EDT Physician Radiation Oncology RADIATION ONCMEGGAN GY ORDERABLES Final Result MOSAIQ RADIATION ONCOLOGY * Rad Onc Msq Treatment Summary (11/21/2024 2:29 PM EDT) Pathologist [facility] Treatment Site Rt Breast MOSAI Q RADIATION ONCOLOGY Course Number 2 MOSAIQ RADIATION ONCOLOGY Prescribed Fractional Dose 267 cGray MOSAIQ RADIATION ONCOLOGY Prescribed Total Dose 4,272 cGray MOSAIQ RADIATION ONCOLOGY Actual Fractions Delivered 8 MOSAIQ RADIATION ONCOLOGY Actual Session Delivered Dose 267 cGray MOSAIQ RADIATION ONCOLOGY Actual Total Dose 2,136 cGray MOSAIQ RADIATION ONCOLOGY Prescribed Technique Tangents MOSAIQ RADIATION ONCOLOGY Elapsed Days 13 MOSAIQ RADIATION ONCOLOGY Start Date 11/08/2024 MOSAIQ RADIATION ONCOLOGY Last Date 11/21/2024 MOSAIQ RADIATION ONCOLOGY Prescribed Number of Fractions 16 MOSAIQ RADIATION ONCOLOGY 11/21/2024 2:29 PM EDT Physician Radiation Oncology RADIATION CHE GY ORDERABLES Final Result MOSAIQ RADIATION ONCOLOGY * Rad Onc Msq Treatment Summary (11/20/2024 1:24 PM EDT) Pathologist [facility] Treatment Site Rt Breast MOSAI Q RADIATION ONCOLOGY Course Number 2 MOSAIQ RADIATION ONCOLOGY Prescribed Fractional Dose 267 cGray MOSAIQ RADIATION ONCOLOGY Prescribed Total Dose 4,272 cGray MOSAIQ RADIATION ONCOLOGY Actual Fractions Delivered 7 MOSAIQ RADIATION ONCOLOGY Actual Session Delivered Dose 267 cGray MOSAIQ RADIATION ONCOLOGY Actual Total Dose 1,869 cGray MOSAIQ RADIATION ONCOLOGY Prescribed Technique Tangents MOSAIQ RADIATION ONCOLOGY Elapsed Days 12 MOSAIQ RADIATION ONCOLOGY Start Date 11/08/2024 MOSAIQ RADIATION ONCOLOGY Last Date 11/20/2024 MOSAIQ RADIATION ONCOLOGY Prescribed Number of Fractions 16 MOSAIQ RADIATION ONCOLOGY 11/20/2024 1:24 PM EDT Physician Radiation Oncology MD RADIATION ONCOLO GY ORDERABLES Final Result MOSAIQ RADIATION ONCOLOGY * Rad Onc Msq Treatment Summary (11/19/2024 2:53 PM EDT) Pathologist [facility] Treatment Site Rt Breast MOSAI Q RADIATION ONCOLOGY Course Number 2 MOSAIQ RADIATION ONCOLOGY Prescribed Fractional Dose 267 cGray MOSAIQ RADIATION ONCOLOGY Prescribed Total Dose 4,272 cGray MOSAIQ RADIATION ONCOLOGY Actual Fractions Delivered 6 MOSAIQ RADIATION ONCOLOGY Actual Session Delivered Dose 267 cGray MOSAIQ RADIATION ONCOLOGY Actual Total Dose 1,602 cGray MOSAIQ RADIATION ONCOLOGY Prescribed Technique Tangents MOSAIQ RADIATION ONCOLOGY Elapsed Days 11 MOSAIQ RADIATION ONCOLOGY Start Date 11/08/2024 MOSAIQ RADIATION ONCOLOGY Last Date 11/19/2024 MOSAIQ RADIATION ONCOLOGY Prescribed Number of Fractions 16 MOSAIQ RADIATION ONCOLOGY 11/19/2024 2:53 PM EDT Physician Radiation Oncology RADIATION ONCMEGGAN GY ORDERABLES Final Result MOSAIQ RADIATION ONCOLOGY * Rad Onc Msq Treatment Summary (11/16/2024 2:29 PM EDT) Pathologist [facility] Treatment Site Rt Breast MOSAI Q RADIATION ONCOLOGY Course Number 2 MOSAIQ RADIATION ONCOLOGY Prescribed Fractional Dose 267 cGray MOSAIQ RADIATION ONCOLOGY Prescribed Total Dose 4,272 cGray MOSAIQ RADIATION ONCOLOGY Actual Fractions Delivered 5 MOSAIQ RADIATION ONCOLOGY Actual Session Delivered Dose 267 cGray MOSAIQ RADIATION ONCOLOGY Actual Total Dose 1,335 cGray MOSAIQ RADIATION ONCOLOGY Prescribed Technique Tangents MOSAIQ RADIATION ONCOLOGY Elapsed Days 8 MOSAIQ RADIATION ONCOLOGY Start Date 11/08/2024 MOSAIQ RADIATION ONCOLOGY Last Date 11/16/2024 MOSAIQ RADIATION ONCOLOGY Prescribed Number of Fractions 16 MOSAIQ RADIATION ONCOLOGY 11/16/2024 2:29 PM EDT Physician Radiation Oncology RADIATION ONCOLO GY ORDERABLES Final Result MOSAIQ RADIATION ONCOLOGY * Rad Onc Msq Treatment Summary (11/15/2024 2:27 PM EDT) Pathologist [facility] Treatment Site Rt Breast MOSAI Q RADIATION ONCOLOGY Course Number 2 MOSAIQ RADIATION ONCOLOGY Prescribed Fractional Dose 267 cGray MOSAIQ RADIATION ONCOLOGY Prescribed Total Dose 4,272 cGray MOSAIQ RADIATION ONCOLOGY Actual Fractions Delivered 4 MOSAIQ RADIATION ONCOLOGY Actual Session Delivered Dose 267 cGray MOSAIQ RADIATION ONCOLOGY Actual Total Dose 1,068 cGray MOSAIQ RADIATION ONCOLOGY Prescribed Technique Tangents MOSAIQ RADIATION ONCOLOGY Elapsed Days 7 MOSAIQ RADIATION ONCOLOGY Start Date 11/08/2024 MOSAIQ RADIATION ONCOLOGY Last Date 11/15/2024 MOSAIQ RADIATION ONCOLOGY Prescribed Number of Fractions 16 MOSAIQ RADIATION ONCOLOGY 11/15/2024 2:27 PM EDT Physician Radiation Oncology RADIATION ONCMEGGAN GY ORDERABLES Final Result MOSAIQ RADIATION ONCOLOGY * Rad Onc Msq Treatment Summary (11/14/2024 2:52 PM EDT) [facility] Treatment Site Rt Breast MOSAI Q RADIATION ONCOLOGY Course Number 2 MOSAIQ RADIATION ONCOLOGY Prescribed Fractional Dose 267 cGray MOSAIQ RADIATION ONCOLOGY Prescribed Total Dose 4,272 cGray MOSAIQ RADIATION ONCOLOGY Actual Fractions Delivered 3 MOSAIQ RADIATION ONCOLOGY Actual Session Delivered Dose 267 cGray MOSAIQ RADIATION ONCOLOGY Actual Total Dose 801 cGray MOSAIQ RADIATION ONCOLOGY Prescribed Technique Tangents MOSAIQ RADIATION ONCOLOGY Elapsed Days 6 MOSAIQ RADIATION ONCOLOGY Start Date 11/08/2024 MOSAIQ RADIATION ONCOLOGY Last Date 11/14/2024 MOSAIQ RADIATION ONCOLOGY Prescribed Number of Fractions 16 MOSAIQ RADIATION ONCOLOGY 11/14/2024 2:52 PM EDT Physician Radiation Oncology RADIATION ONCMEGGAN GY ORDERABLES Final Result MOSAIQ RADIATION ONCOLOGY * US Asp Breast Abscess/Hematoma/Bulla/Cyst Right (11/12/2024 3:55 PM EDT) Anatomical Region Laterality Modality Breast Right Ultrasound 11/12/2024 4:12 PM EDT Narrative 11/12/2024 4:54 PM EDT INDICATION: Right breast seroma aspiration TECHNIQUE: Written informed consent obtained. Patient placed supine on the ultrasound stretcher. Multiple images obtained of the right breast 10:00 position approximately 16 cm from the nipple line. After review of the images, the appropriate area of skin was localized under real-time ultrasound. Care was taken to avoid area of indurated skin. This region was draped and prepped in the usual sterile fashion. 2% buffered lidocaine was used as a local anesthetic. Under real-time ultrasound guidance, a 5 Gabonese centesis catheter was guided into the hypoechoic collection. A 10 cc syringe was used for manual aspiration. Approximately 7 cc of serous type fluid with debris was aspirated. An additional attempt was made without additional aspirate despite good placement and visualization of the catheter, indicating viscous or coagulated contents. The patient tolerated the procedure well and left the department in stable condition without immediate complications. FINDINGS: Images obtained during needle aspiration demonstrate tip of needle within right breast collection. CONCLUSION: Ultrasound-guided right breast seroma aspiration as described above. -------- FINAL REPORT -------- Dictated By: Draa Matthew Dictated Date: 11/12/2024 16:12 ET Assigned Physician: Gianna Sheets Reviewed and Electronically Signed By: Gianna Sheets Signed Date: 11/12/2024 16:54 ET Workstation ID: [id number] Transcribed By: Self Edit Transcribed Date: 11/12/2024 16:17 ET Resident/PA/[employer] DIRECTOR: Dara Matthew Procedure Note Gianna Sheets MD - 11/12/2024 INDICATION: Right breast seroma aspiration TECHNIQUE: Written informed consent obtained. Patient placed supine on theultrasound stretcher. Multiple images obtained of the right breast 10:00position approximately 16 cm from the nipple line. After review of theimages, the appropriate area of skin was localized under real-timeultrasound. Care was taken to avoid area of indurated skin. This regionwas draped and prepped in the usual sterile fashion. 2% buffered lidocainewas used as a local anesthetic. Under real-time ultrasound guidance, a 5French centesis catheter was guided into the hypoechoic collection. A 10cc syringe was used for manual aspiration. Approximately 7 cc of seroustype fluid with debris was aspirated. An additional attempt was madewithout additional aspirate despite good placement and visualization ofthe catheter, indicating viscous or coagulated contents. The patienttolerated the procedure well and left the department in stable conditionwithout immediate complications. FINDINGS: Images obtained during needle aspiration demonstrate tip of needle withinright breast collection. CONCLUSION: Ultrasound-guided right breast seroma aspiration as described above. -------- FINAL REPORT -------- Dictated By: Dara Matthew Dictated Date: 11/12/2024 16:12 ET Assigned Physician: Gianna Sheets Reviewed and Electronically Signed By: Gianna Sheets Signed Date: 11/12/2024 16:54 ET Workstation ID: [id number] Transcribed By: Self Edit Transcribed Date: 11/12/2024 16:17 ET Resident/PA/[employer] DIRECTOR: Dara Matthew Alana Valdez MD IM US PROCEDURES Final Result * Rad Onc Msq Treatment Summary (11/09/2024 2:38 PM EDT) Pathologist [facility] Treatment Site Rt Breast MOSAI Q RADIATION ONCOLOGY Course Number 2 MOSAIQ RADIATION ONCOLOGY Prescribed Fractional Dose 267 cGray MOSAIQ RADIATION ONCOLOGY Prescribed Total Dose 4,272 cGray MOSAIQ RADIATION ONCOLOGY Actual Fractions Delivered 2 MOSAIQ RADIATION ONCOLOGY Actual Session Delivered Dose 267 cGray MOSAIQ RADIATION ONCOLOGY Actual Total Dose 534 cGray MOSAIQ RADIATION ONCOLOGY Prescribed Technique Tangents MOSAIQ RADIATION ONCOLOGY Elapsed Days 1 MOSAIQ RADIATION ONCOLOGY Start Date 11/08/2024 MOSAIQ RADIATION ONCOLOGY Last Date 11/09/2024 MOSAIQ RADIATION ONCOLOGY Prescribed Number of Fractions 16 MOSAIQ RADIATION ONCOLOGY 11/09/2024 2:38 PM EDT Physician Radiation Oncology RADIATION ONCOLO GY ORDERABLES Final Result MOSAIQ RADIATION ONCOLOGY * Rad Onc Msq Treatment Summary (11/08/2024 2:46 PM EDT) Pathologist [facility] Treatment Site Rt Breast MOSAI Q RADIATION ONCOLOGY Course Number 2 MOSAIQ RADIATION ONCOLOGY Prescribed Fractional Dose 267 cGray MOSAIQ RADIATION ONCOLOGY Prescribed Total Dose 4,272 cGray MOSAIQ RADIATION ONCOLOGY Actual Fractions Delivered 1 MOSAIQ RADIATION ONCOLOGY Actual Session Delivered Dose 267 cGray MOSAIQ RADIATION ONCOLOGY Actual Total Dose 267 cGray MOSAIQ RADIATION ONCOLOGY Prescribed Technique Tangents MOSAIQ RADIATION ONCOLOGY Elapsed Days 0 MOSAIQ RADIATION ONCOLOGY Start Date 11/08/2024 MOSAIQ RADIATION ONCOLOGY Last Date 11/08/2024 MOSAIQ RADIATION ONCOLOGY Prescribed Number of Fractions 16 MOSAIQ RADIATION ONCOLOGY 11/08/2024 2:46 PM EDT Physician Radiation Oncology RADIATION ONCOLO GY ORDERABLES Final Result MOSAIQ RADIATION ONCOLOGY * BD Bone Density DXA Axial Skeleton (11/01/2024 10:33 AM EDT) Anatomical Region Laterality Modality Wrist, Hip, L-spine Bone Densito metry 11/01/2024 10:5 9 AM EDT Impressions 11/01/2024 11:00 AM EDT 1. Osteopenia. 2. FRAX analysis yields a 10-year probability of major osteoporotic fracture of 3.8% and a 10-year probability of hip fracture of 0.5%. Code 12962 -------- FINAL REPORT -------- Dictated By: Thom Phan Dictated Date: 11/01/2024 10:59 ET Assigned Physician: Thom Phan Reviewed and Electronically Signed By: Thom Phan Signed Date: 11/01/2024 11:00 ET Workstation ID: [id number] Transcribed By: Self Edit Transcribed Date: 11/01/2024 10:59 ET Narrative 11/01/2024 11:00 AM EDT HISTORY: The patient is a 64-year-old postmenopausal female with clinical concern for metabolic bone disease. FINDINGS: Dual energy x-ray absorptiometry of the lumbar spine and femurs is performed. The mean bone mineral density at L1-L4 is 1.060 gm/cm2 which is 90% of that of young normals and 87% of that of age matched controls. This yields a T-score of -1.0 and a Z-score of -1.3 and there is therefore no evidence of osteoporosis or osteopenia here. The mean bone mineral density of the femurs bilaterally is 1.114 gm/cm2 which is 111% of that of young normals and 103% of that of age matched controls. This yields a T-score of 0.8 and a Z-score of 0.3 and there is therefore no evidence of osteoporosis or osteopenia here. However, the T-score of the right femoral neck is -1.8 which is diagnostic of osteopenia. Procedure Note Thom Phan MD - 11/01/2024 HISTORY: The patient is a 64-year-old postmenopausal female with clinicalconcern for metabolic bone disease. FINDINGS: Dual energy x-ray absorptiometry of the lumbar spine and femursis performed. The mean bone mineral density at L1-L4 is 1.060 gm/cm2 whichis 90% of that of young normals and 87% of that of age matched controls.This yields a T-score of -1.0 and a Z-score of -1.3 and there is thereforeno evidence of osteoporosis or osteopenia here. The mean bone mineral density of the femurs bilaterally is 1.114 gm/he6ryzyq is 111% of that of young normals and 103% of that of age matchedcontrols. This yields a T-score of 0.8 and a Z-score of 0.3 and there istherefore no evidence of osteoporosis or osteopenia here. However, theT-score of the right femoral neck is -1.8 which is diagnostic ofosteopenia. IMPRESSION: 1. Osteopenia. 2. FRAX analysis yields a 10-year probability of major osteoporoticfracture of 3.8% and a 10-year probability of hip fracture of 0.5%. Code 22955 -------- FINAL REPORT -------- Dictated By: Thom Phan Dictated Date: 11/01/2024 10:59 ET Assigned Physician: Thom Phan Reviewed and Electronically Signed By: Thom Phan Signed Date: 11/01/2024 11:00 ET Workstation ID: [id number] Transcribed By: Self Edit Transcribed Date: 11/01/2024 10:59 ET us Shala Mckay DO IMG DXA PROCEDURES Fi nal Result * CT Chest w Contrast (10/03/2024 3:15 PM EDT) Anatomical Region Laterality Modality Body Computed Tomogra phy 10/04/2024 7:30 AM EDT Impressions 10/04/2024 7:50 AM EDT There are posttreatment changes in each lung. No new suspicious finding in either lung. Findings in the right breast suggest lumpectomy and right axillary lymph node surgery with a gas level in the lower inner right breast and a collection in the right axilla -------- FINAL REPORT -------- Dictated By: Chacho Meza Dictated Date: 10/04/2024 07:30 ET Assigned Physician: Chacho Meza Reviewed and Electronically Signed By: Chacho Meza Signed Date: 10/04/2024 07:50 ET Workstation ID: [id number] Transcribed By: Self Edit Transcribed Date: 10/04/2024 07:30 ET Narrative 10/04/2024 7:50 AM EDT EXAMINATION: CT CHEST WITH CONTRAST CLINICAL INFORMATION: History of lung cancer x 2. 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 Examination of the chest. Examination of the chest following the IV administration of nonionic contrast. Reformatting in the coronal and sagittal planes. DLP: 1199 mGy-cm Dose optimization was performed including the use of low-dose iterative reconstruction technique with automatic exposure control based on patient size. Type of contrast: ISOVUE 370 Volume of IV contrast: 90 mL Volume of contrast discarded: 0 mL FINDINGS: LUNG: There is no abnormality of the trachea or mainstem bronchi. There are metallic sutures in the medial right upper lung with some associated linear and reticular opacity similar to 06/12/24. There is an irregular somewhat linear opacity in the periphery of the left upper lung with spicules extending to the pleural reflection cyst. This is difficult to quantify. Clinical Data Research measurement, axial; 10/03/24-1.6 x 0.8 cm () 06/12/24-1.7 x 0.9 cm () 12/02/22-1.6 x 0.9 cm () There is no new suspicious solid mass or nodule. There are a few subcentimeter groundglass opacities. There is reticular abnormality with somewhat linear configuration in the medial aspect of the left lung along the plane of the hilum. This is similar to previous and could reflect postradiation change. MEDIASTINUM: There are no enlarged mediastinal or hilar lymph nodes. There is a small hiatal hernia. CARDIAC: The heart is not enlarged. No pericardial fluid or thickening CORONARY CALCIFICATION: No coronary calcifications demonstrated. VASCULAR: There is no thoracic aortic aneurysm. The main pulmonary artery is normal caliber. The vascular catheter terminates at the junction of SVC with right atrium. PLEURA: There is no pleural fluid or pneumothorax AXILLA/CHEST WALL: Metallic density in the left axilla. There is a subpectoral left breast implant. There is a collection with gas fluid level in the medial right lower breast which measures approximately 5.6 cm. Partially included fluid in the right axilla. There is a reservoir in the right chest wall. There is skin thickening in the right breast. VISUALIZED UPPER ABDOMEN: No suspicious abnormality on limited assessment of the visualized upper abdomen. Suspect fatty change in liver. MUSCULOSKELETAL: No suspicious focal bony lesion. Procedure Note Chacho Meza MD - 10/04/2024 EXAMINATION: CT CHEST WITH CONTRAST CLINICAL INFORMATION: History of lung cancer x 2. Ultrasound-guided biopsy 08/22/24 yieldedinvasive ductal carcinoma in the right breast at the 5 o'clock positionand metastatic carcinoma in a right axillary lymph node COMPARISON: Portions of previous chest CT 06/12/24 TECHNIQUE: Multidetector CT. Examination of the chest. Examination of the chest following the IV administration of nonioniccontrast. Reformatting in the coronal and sagittal planes. DLP: 1199 mGy-cm Dose optimization was performed including the use of low-dose iterativereconstruction technique with automatic exposure control based on patientsize. Type of contrast: ISOVUE 370 Volume of IV contrast: 90 mL Volume of contrast discarded: 0 mL FINDINGS: LUNG: There is no abnormality of the trachea or mainstem bronchi. Thereare metallic sutures in the medial right upper lung with some associatedlinear and reticular opacity similar to 06/12/24. There is an irregular somewhat linear opacity in the periphery of the leftupper lung with spicules extending to the pleural reflection cyst. Thisis difficult to quantify. Clinical Data Research measurement, axial; 10/03/24-1.6 x 0.8 cm () 06/12/24-1.7 x 0.9 cm () 12/02/22-1.6 x 0.9 cm () There is no new suspicious solid mass or nodule. There are a fewsubcentimeter groundglass opacities. There is reticular abnormality with somewhat linear configuration in themedial aspect of the left lung along the plane of the hilum. This issimilar to previous and could reflect postradiation change. MEDIASTINUM: There are no enlarged mediastinal or hilar lymph nodes.There is a small hiatal hernia. CARDIAC: The heart is not enlarged. No pericardial fluid or thickening CORONARY CALCIFICATION: No coronary calcifications demonstrated. VASCULAR: There is no thoracic aortic aneurysm. The main pulmonary arteryis normal caliber. The vascular catheter terminates at the junction ofSVC with right atrium. PLEURA: There is no pleural fluid or pneumothorax AXILLA/CHEST WALL: Metallic density in the left axilla. There is asubpectoral left breast implant. There is a collection with gas fluid level in the medial right lowerbreast which measures approximately 5.6 cm. Partially included fluid in the right axilla. There is a reservoir in theright chest wall. There is skin thickening in the right breast. VISUALIZED UPPER ABDOMEN: No suspicious abnormality on limited assessmentof the visualized upper abdomen. Suspect fatty change in liver. MUSCULOSKELETAL: No suspicious focal bony lesion. IMPRESSION: There are posttreatment changes in each lung. No new suspicious finding in either lung. Findings in the right breast suggest lumpectomy and right axillary lymphnode surgery with a gas level in the lower inner right breast and acollection in the right axilla -------- FINAL REPORT -------- Dictated By: Chacho Meza Dictated Date: 10/04/2024 07:30 ET Assigned Physician: Chacho Meza Reviewed and Electronically Signed By: Chacho Meza Signed Date: 10/04/2024 07:50 ET Workstation ID: [id number] Transcribed By: Self Edit Transcribed Date: 10/04/2024 07:30 ET Shala Mckay DO IMG CT PROCEDURES Fin al Result * (ABNORMAL) MG Mammo Digital Diagnostic w Inocente Right (08/02/2024 3:39 PM EDT) Anatomical Region Laterality Modality Breast Right Mammography 08/02/2024 3:26 PM EDT Impressions 08/02/2024 4:00 PM EDT Evidence of prior reduction surgery. There is a solid mass in the 5 o'clock region 8 cm from the right nipple which likely correlates with the finding on CT. This has increased in size. There is a prominent right axillary lymph node. I reviewed the findings and possible management options with the patient. We decided to make a tentative appointment for ultrasound-guided right breast biopsy and ultrasound-guided right axillary lymph node biopsy pending review by Dr. Mckay. ASSESSMENT: BI-RADS 4: SUSPICIOUS RECOMMENDATION(S): 1: Needle biopsy recommended RIGHT including right axillary lymph node and right breast mass [facility] location[facility] [address], [address] -------- FINAL REPORT -------- Dictated By: Chacho Meza Dictated Date: 08/02/2024 15:26 ET Assigned Physician: Chacho Meza Reviewed and Electronically Signed By: Chacho Meza Signed Date: 08/02/2024 16:00 ET Workstation ID: [id number] Transcribed By: Self Edit Transcribed Date: 08/02/2024 15:51 ET Narrative 08/02/2024 4:00 PM EDT EXAM: DIAGNOSTIC MAMMOGRAPHY, UNILATERAL RIGHT ULTRASOUND: DIAGNOSTIC ULTRASOUND, UNILATERAL RIGHT HISTORY: Personal history of breast cancer. Post left mastectomy with implant reconstruction. Prior reduction surgery. The patient reports having abnormal pathology results of the tissue obtained at the time of breast reduction surgery. The patient has received treatment including surgery and chemotherapy for metastatic lung cancer. Reportedly the patient is off all treatment at this time. Recent chest CT demonstrated abnormalities. COMPARISON: Prior mammography 07/19/23, 07/16/22, 01/28/20 TECHNIQUE: Synthesized views of the right breast in the CC and MLO projections. Tomosynthesis of the right breast in the CC and MLO projections. ADDITIONAL IMAGING: None High-frequency linear transducer ultrasound of the right breast targeted to the area(s) of clinical concern. Computer-aided detection was employed with the [employer] 3-D. TISSUE DENSITY: There are scattered areas of fibroglandular density. (BI-RADS category B) FINDINGS: MAMMOGRAPHY: RIGHT BREAST: Evidence of prior reduction surgery. There is asymmetry close to the chest wall in the right breast which may or may not correlate with the mass demonstrated on recent CT. This areas unable to be completely included. Prominent right axillary lymph node. No other new suspicious right breast finding ULTRASOUND: RIGHT BREAST: 5 o'clock position 8 cm from right nipple, close to the chest wall near inframammary fold medially There is a hypoechoic solid mass with microlobulated margins close to the chest wall. No definite color signal. 08/02/24-1.1 cm This may correlate with a mass demonstrated on CT CT measurements as follows; 06/12/24-1.1 cm () 03/14/24-1.1 cm () 11/18/23-0.9 cm () 07/16/22-0.5 cm () 10/19/19-0.4 cm () The right axilla was also examined RIGHT AXILLA: There is an oval hypoechoic solid mass with an equivocal fatty hilum in the Level I distribution. 08/02/24-1.5 cm There is a prominent right axillary lymph node on CT as follows; 06/12/24-1.1 cm () 03/14/24-at least 1.4 cm () I cannot accurately determine short axis since not completely included 11/18/23-at least 1.2 cm () I cannot accurately determine short axis and is not completely included 07/16/22-0.7 cm () 10/19/19-no enlarged axillary lymph nodes Procedure Note Chacho Meza MD - 08/02/2024 EXAM: DIAGNOSTIC MAMMOGRAPHY, UNILATERAL RIGHT ULTRASOUND: DIAGNOSTIC ULTRASOUND, UNILATERAL RIGHT HISTORY: Personal history of breast cancer. Post left mastectomy withimplant reconstruction. Prior reduction surgery. The patient reports having abnormal pathology results of the tissueobtained at the time of breast reduction surgery. The patient has received treatment including surgery and chemotherapy formetastatic lung cancer. Reportedly the patient is off all treatment at this time. Recent chest CT demonstrated abnormalities. COMPARISON: Prior mammography 07/19/23, 07/16/22, 01/28/20 TECHNIQUE: Synthesized views of the right breast in the CC and MLOprojections. Tomosynthesis of the right breast in the CC and MLOprojections. ADDITIONAL IMAGING: None High-frequency linear transducer ultrasound of the right breast targetedto the area(s) of clinical concern. Computer-aided detection was employed with the [employer] 3-D. TISSUE DENSITY: There are scattered areas of fibroglandular density.(BI-RADS category B) FINDINGS: MAMMOGRAPHY: RIGHT BREAST: Evidence of prior reduction surgery. There is asymmetry close to thechest wall in the right breast which may or may not correlate with themass demonstrated on recent CT. This areas unable to be completelyincluded. Prominent right axillary lymph node. No other new suspicious right breast finding ULTRASOUND: RIGHT BREAST: 5 o'clock position 8 cm from right nipple, close to the chest wall nearinframammary fold medially There is a hypoechoic solid mass with microlobulated margins close to thechest wall. No definite color signal. 08/02/24-1.1 cm This may correlate with a mass demonstrated on CT CT measurements as follows; 06/12/24-1.1 cm () 03/14/24-1.1 cm () 11/18/23-0.9 cm () 07/16/22-0.5 cm () 10/19/19-0.4 cm () The right axilla was also examined RIGHT AXILLA: There is an oval hypoechoic solid mass with an equivocal fatty hilum inthe Level I distribution. 08/02/24-1.5 cm There is a prominent right axillary lymph node on CT as follows; 06/12/24-1.1 cm () 03/14/24-at least 1.4 cm () I cannot accurately determine short axissince not completely included 11/18/23-at least 1.2 cm () I cannot accurately determine short axisand is not completely included 07/16/22-0.7 cm () 10/19/19-no enlarged axillary lymph nodes IMPRESSION: Evidence of prior reduction surgery. There is a solid mass in the 5 o'clock region 8 cm from the right nipplewhich likely correlates with the finding on CT. This has increased insize. There is a prominent right axillary lymph node. I reviewed the findings and possible management options with thepatient. We decided to make a tentative appointment for ultrasound-guided rightbreast biopsy and ultrasound-guided right axillary lymph node biopsypending review by Dr. Mckay. ASSESSMENT: BI-RADS 4: SUSPICIOUS RECOMMENDATION(S): 1: Needle biopsy recommended RIGHT including right axillary lymph node andright breast mass Mamm[facility] location: [facility] at [address], [address] -------- FINAL REPORT -------- Dictated By: Chacho Meza Dictated Date: 08/02/2024 15:26 ET Assigned Physician: Chacho Meza Reviewed and Electronically Signed By: Chacho Meza Signed Date: 08/02/2024 16:00 ET Workstation ID: [id number] Transcribed By: Self Edit Transcribed Date: 08/02/2024 15:51 ET Shala Mckay DO IMG BI PROCEDURES Fin al Result from Last 3 Months or Most Recently Relevant to Health Maintenance Insurance MEDICAID - [place] MEDICARE Advance Directives * Full Code - Default (Latest Code Status on File) Date Activated Date Inactivated Comments 09/25/2024 6:12 AM 09/25/2024 2:39 PM This is order is used when code status has not been discussed with the patient, or code status is otherwise unknown/unconfirmed To update the patient's code status, place a code status order. Do not modify or discontinue any currently active code status orders. Care Teams Screw Supervisor Relationship Specialty Start Date End Date Lillian Bowman MD [address] [place] [id number] PCP - General Internal Medicine 05/17/24
== END 2025-01-03 15:33 | disposition home or self-care (01) ==
LOC: HO.HPHYS 14:35
PROVIDERS: PCP Internal Medicine; Visit Provider Physical Medicine & Rehabilitation
DX: M54.12 Radiculopathy, cervical region (principal); G89.4 Chronic pain syndrome; C80.1 Malignant (primary) neoplasm, unspecified; G63 Polyneuropathy in diseases classified elsewhere; M54.16 Radiculopathy, lumbar region; G62.0 Drug-induced polyneuropathy
CPT/HCPCS: 99214; G2211

== ENCOUNTER → 2025-01-03 14:35 | Outpatient (BNVA) | payer MEDICAID, SELFPAY | PROVIDERS: PCP Internal Medicine; Visit Provider Physical Medicine & Rehabilitation | DX: M54.12 Radiculopathy, cervical region (principal); G89.4 Chronic pain syndrome; C80.1 Malignant (primary) neoplasm, unspecified; M54.16 Radiculopathy, lumbar region; G62.0 Drug-induced polyneuropathy | CPT/HCPCS: 99212 ==

== ENCOUNTER 2025-02-04 10:58 | Day surgery (SDC) | payer MEDICARE, MEDICAID, SELFPAY ==
[2025-01-31 10:27] VITALS: BMI 43.4
--- NOTE | 2025-02-01 11:52 | HO.ANESPROP2 ---
Documented by User: Zuri Duff NP 02/01/25 12:07 HPI - Anesthesia Eval Consult details Narrative: 64 yr old female for ?BILATERAL L4 Lumbar Transforaminal JEANETTE; LEFT C7-T1 Cervical Interlaminar ES H/O lung CA with brain mets, treated in 2016; then recurrence in 2022, underwent right upper lobe wedge resection . Bilateral breast cancer, one mets from lung, a second primary breast. Port a cath in place. Follows [facility] breast oncology & [facility] hem/onc; she completed radiation for breast CA end of Nov 2024. H/O DVT: not on anticoagulation COPD: On O2 at home PMFSH Active Problems Active Problems: All Active Problems (Updated 01/31/25 @ 10:44 by Eli Wilde RN) Drug-induced polyneuropathy (Acute) Lumbar radiculitis (Acute) Neuropathy associated with malignant neoplasm (Acute) Chronic pain syndrome (Acute) Cervical radiculitis (Acute) Past Medical History Medical History Dyspepsia Osteopenia Brain cancer PTSD (post-traumatic stress disorder) Polyarthralgia Thyroid nodule Hepatic steatosis Fibromyalgia DVT (deep venous thrombosis) Pulmonary nodules On oxygen therapy Recurrent pulmonary embolism Breast cancer, left Lung cancer COPD (chronic obstructive pulmonary disease) Drug-induced polyneuropathy Lumbar radiculitis Neuropathy associated with malignant neoplasm Chronic pain syndrome Cervical radiculitis Surgical History Surgical History Hx of brain surgery Hx of reduction mammoplasty Hx of left mastectomy History of lung surgery History of cataract extraction (Unknown) History of delivery (Unknown) Social History Social History Alcohol intake: current Alcohol intake frequency: does not drink Patient Tobacco Use Status: Never used Tobacco Current occupational status: retired Meds Allergies Allergy/AdvReac Type Severity Reaction Status Date / Time aspirin (ASA) Allergy Intermediate GI, HIVES, Verified 01/31/25 10:11 throat swelling ibuprofen (From MOTRIN) Allergy Intermediate SWELLING Verified 01/31/25 10:11 NSAIDS (Non-Steroidal Allergy Intermediate GI,BURNING Verified 01/31/25 10:11 Anti-Inflamma (NSAIDS IN STOMACH (NON-STEROIDAL ANTI-INFLAMMA) Home Medications ?Medication ?Instructions ?Recorded ?Confirmed ?Last Taken ?Type albuterol sulfate 90 mcg/actuation 2 puff inhalation Q6H PRN wheezing 12/31/24 01/31/25 Unknown History aerosol inhaler anastrozole 1 mg tablet 1 mg PO DAILY 12/31/24 01/31/25 Unknown History azelastine 137 mcg (0.1 %) nasal 1 spray intranasal BID 12/31/24 01/03/25 Unknown History spray calcium 500 mg (as 1 tab PO DAILY 12/31/24 01/31/25 Unknown History carbonate)-vitamin D3 5 mcg (200 unit) tablet (Oyster Shell Calcium-Vitamin D3) cholecalciferol (vitamin D3) 25 25 mcg PO DAILY 12/31/24 01/31/25 Unknown History mcg (1,000 unit) tablet (Vitamin D3) fluticasone propionate 50 1 spray intranasal BID 12/31/24 01/03/25 Unknown History mcg/actuation nasal spray,suspension folic acid 1 mg tablet 1 mg PO DAILY 12/31/24 01/31/25 Unknown History ketotifen fumarate 0.025 % (0.035 1 drp ophthalmic (eye) BID PRN 12/31/24 01/03/25 Unknown History %) eye drops lidocaine 5 % topical patch 1 patch topical DAILY PRN mild pain 12/31/24 01/31/25 Unknown History loratadine 10 mg tablet 10 mg PO DAILY PRN 12/31/24 01/03/25 Unknown History metoprolol succinate 25 mg 12.5 mg PO DAILY 12/31/24 01/31/25 Unknown History tablet,extended release 24 hr mometasone 0.1 % topical cream appl topical 12/31/24 01/03/25 Unknown History montelukast 10 mg tablet 10 mg PO BEDTIME 12/31/24 01/31/25 Unknown History olopatadine 0.1 % eye drops 1 drp ophthalmic (eye) BID 12/31/24 01/03/25 Unknown History pregabalin 75 mg capsule 75 mg PO TID 12/31/24 01/31/25 Unknown History famotidine 40 mg tablet 40 mg PO DAILY 01/31/25 01/31/25 Unknown History omeprazole 20 mg tablet,delayed 20 mg PO DAILY 01/31/25 01/31/25 Unknown History release Exam Height,Weight and Vital Signs: Height 5 ft 3 in Weight 111.13 kg Pertinent Lab Results Pertinent Lab Results: WBC 4.8 - 10.8 K/mcL 8.7 RBC 3.80 - 4.80 M/mcL 4.10 Hemoglobin 11.5 - 16.0 g/dL 12.1 Hematocrit 35.0 - 47.0 % 38.3 MCV 79.0 - 98.0 FL 93.2 MCH 27.0 - 32.0 pcg 29.4 MCHC 32.0 - 37.0 g/dL 31.6?Low? RDW 11.0 - 15.0 % 13.1 Platelets 130 - 400 K/mcL 270 MPV 7.0 - 11.0 FL 10.3 NRBC <1.0 % 0.0 NRBC Absolute <0.10 K/mcL 0.00 Neutrophils Relative ??% 62.3 Lymphocytes Relative ??% 24.9 Monocytes Relative ??% 9.3 Eosinophils Relative ??% 2.6 Basophils Relative ??% 0.6 Immature Granulocytes Relative ??% 0.3 Neutrophils Absolute 1.50 - 7.00 K/mcL 5.44 Lymphocytes Absolute 1.00 - 5.00 K/mcL 2.18 Monocytes Absolute 0.20 - 1.00 K/mcL 0.81 Eosinophils Absolute 0.00 - 0.50 K/mcL 0.23 Sodium 133 - 145 mmol/L 141 Potassium 3.5 - 5.5 mmol/L 3.8 Chloride 96 - 110 mmol/L 108 CO2 21 - 32 mmol/L 30 Anion Gap 3 - 11 3 Glucose 70 - 100 mg/dL 88 BUN 5 - 25 mg/dL 11 Creatinine 0.50 - 1.10 mg/dL 0.86 eGFR >=60 mL/min/1.73m2 75 Labs above from 08/2024 Narrative Narrative: EKG 08/2024 Normal sinus rhythm; rate 91 Normal ECG No previous ECGs available Confirmed by Manuela JUAREZ JAMES ([id number]) on 09/20/2024 6:06:21 PM Documented by User: Chloé Hayward MD 02/04/25 10:53 REPLACED BY [facility] Past Medical History Medical History Dyspepsia Osteopenia Brain cancer PTSD (post-traumatic stress disorder) Polyarthralgia Thyroid nodule Hepatic steatosis Fibromyalgia DVT (deep venous thrombosis) Pulmonary nodules On oxygen therapy Recurrent pulmonary embolism Breast cancer, left Lung cancer COPD (chronic obstructive pulmonary disease) Drug-induced polyneuropathy Lumbar radiculitis Neuropathy associated with malignant neoplasm Chronic pain syndrome Cervical radiculitis Family History Family history of problems with anesthesia: No Surgical History Surgical History Hx of brain surgery Hx of reduction mammoplasty Hx of left mastectomy History of lung surgery History of cataract extraction (Unknown) History of delivery (Unknown) History of Problems with Anesthesia: No Social History Social History Alcohol intake: current Alcohol intake frequency: does not drink Patient Tobacco Use Status: Never used Tobacco Current occupational status: retired [employer] Allergies Allergy/AdvReac Type Severity Reaction Status Date / Time aspirin (ASA) Allergy Intermediate GI, HIVES, Verified 01/31/25 10:11 throat swelling ibuprofen (From MOTRIN) Allergy Intermediate SWELLING Verified 01/31/25 10:11 NSAIDS (Non-Steroidal Allergy Intermediate GI,BURNING Verified 01/31/25 10:11 Anti-Inflamma (NSAIDS IN STOMACH (NON-STEROIDAL ANTI-INFLAMMA) Home Medications ?Medication ?Instructions ?Recorded ?Confirmed ?Last Taken ?Type albuterol sulfate 90 mcg/actuation 2 puff inhalation Q6H PRN wheezing 12/31/24 01/31/25 Unknown History aerosol inhaler anastrozole 1 mg tablet 1 mg PO DAILY 12/31/24 01/31/25 Unknown History azelastine 137 mcg (0.1 %) nasal 1 spray intranasal BID 12/31/24 01/03/25 Unknown History spray calcium 500 mg (as 1 tab PO DAILY 12/31/24 01/31/25 Unknown History carbonate)-vitamin D3 5 mcg (200 unit) tablet (Oyster Shell Calcium-Vitamin D3) cholecalciferol (vitamin D3) 25 25 mcg PO DAILY 12/31/24 01/31/25 Unknown History mcg (1,000 unit) tablet (Vitamin D3) fluticasone propionate 50 1 spray intranasal BID 12/31/24 01/03/25 Unknown History mcg/actuation nasal spray,suspension folic acid 1 mg tablet 1 mg PO DAILY 12/31/24 01/31/25 Unknown History ketotifen fumarate 0.025 % (0.035 1 drp ophthalmic (eye) BID PRN 12/31/24 01/03/25 Unknown History %) eye drops lidocaine 5 % topical patch 1 patch topical DAILY PRN mild pain 12/31/24 01/31/25 Unknown History loratadine 10 mg tablet 10 mg PO DAILY PRN 12/31/24 01/03/25 Unknown History metoprolol succinate 25 mg 12.5 mg PO DAILY 12/31/24 01/31/25 Unknown History tablet,extended release 24 hr mometasone 0.1 % topical cream appl topical 12/31/24 01/03/25 Unknown History montelukast 10 mg tablet 10 mg PO BEDTIME 12/31/24 01/31/25 Unknown History olopatadine 0.1 % eye drops 1 drp ophthalmic (eye) BID 12/31/24 01/03/25 Unknown History pregabalin 75 mg capsule 75 mg PO TID 12/31/24 01/31/25 Unknown History famotidine 40 mg tablet 40 mg PO DAILY 01/31/25 01/31/25 Unknown History omeprazole 20 mg tablet,delayed 20 mg PO DAILY 01/31/25 01/31/25 Unknown History release Exam Airway Mallampati Class: III TM Dist: >3cm Neck ROM: Full Heart: rrr Lungs: cta Assessment and Plan Assessment Anesthesia Assessment: Anesthesia Plan Discussed and Chart Reviewed Final Anesthetic Review Family History of Problems with Anesthesia: No History of Problems with Anesthesia: No NPO: Yes ASA Class: III Final Preanesthetic Review: No Changes in Pt Med Stat, Meds/Allgs Chart Reviewed, Consent Obtained/Reviewed and Anes Risks/Benef Reviewed Patient Risk: Intermediate Procedure Risk: Low Anesthetic Plan Anesthetic Plan: MAC: Disposition: Standard PACU
--- NOTE | ~2025-02-04 | FL_ITS ---
EXAMINATION: FL GUIDANCE ONLY HISTORY: Procedural guidance COMPARISON: None available. TECHNIQUE: Fluoroscopy time: 11 seconds. Cumulative Dose: 2.20 mGy. DAP: 93.99 uGym2 Images: 2. FINDINGS: Fluoroscopic spot films of the cervical spine demonstrate a needle and contrast material in the midline. FL/FL guidance in OR IMPRESSION: Fluoroscopy during procedure. Please see procedure report for additional information. Electronically signed by: Michael Hurtado MD 02/05/2025 07:19 AM MANAN
--- NOTE | ~2025-02-04 | FL_ITS ---
EXAMINATION: FL GUIDANCE ONLY HISTORY: Procedural guidance COMPARISON: None available. TECHNIQUE: Fluoroscopy time: 18 seconds. Cumulative Dose: 5.10 mGy. DAP: 221.92 uGym2 Images: 2. FINDINGS: Fluoroscopic spot films of the lumbar spine demonstrate needles and contrast material in place inferior to the bilateral L4 pedicles. FL/FL guidance in OR IMPRESSION: Fluoroscopy during procedure. Please see procedure report for additional information. Electronically signed by: Michael Hurtado MD 02/05/2025 07:20 AM MANAN
[2025-02-04 11:39] VITALS: BMI 44.1
[2025-02-04 11:45] VITALS: BP 111/78; PULSE 89; RESP 16; TEMP 36.4; O2SAT 99
--- NOTE | 2025-02-04 11:47 | MHC.SHP ---
Pre-Procedural Eval Section A - 24 Hr Update-Section A only Date of Service: 02/04/25 The patient is an INPATIENT: No The patient has been examined within 24 hours of the surgical procedure. The History & Physical has been completed within 30 days and I have reviewed it.: Yes Section B - Complete if H&P > 30 days Chief Complaint: Radiculopathy, lumbar and cervical region Details of Present Illness: History of chronic neck and lower back pain with associated lumbar and cervical radicular symptoms Relevant Family History (Specify if Yes): No Relevant Social History: None Present Medications: see Short Stay Collaborative assessment Medical History: No relevant PMH History of Previous Operations: No relevant previous surgery Allergies: Allergies Allergy/AdvReac Type Severity Reaction Status Date / Time aspirin (ASA) Allergy Intermediate GI, HIVES, Verified 02/04/25 11:38 throat swelling ibuprofen (From MOTRIN) Allergy Intermediate SWELLING Verified 02/04/25 11:38 NSAIDS (Non-Steroidal Allergy Intermediate GI,BURNING Verified 02/04/25 11:38 Anti-Inflamma (NSAIDS IN STOMACH (NON-STEROIDAL ANTI-INFLAMMA) Review of Systems Sugical H&P ROS: Negative: Constitution, Cardiovascular, Respiratory, Neurological, Psychiatric, Hem-Onc, Allergic/Immunologic, Gastrointestinal, Genitourinary, Musculoskeletal, Integumentary, Endocrine and Eyes/Ears/Nose/Throat Exam Surgical H&P Exam: Normal: HEENT, Normal: Heart, Normal: Lungs, Normal: Extremities, Normal: Abdomen, Normal: Skin and Normal: Neurological Plan Diagnosis/Plan: Unchanged I have reviewed the history and physical and performed a pertinent physical examination on my patient. No changes have occurred unless specified. Time Spent With Patient Time: Total time managing care of this patient today ____ minutes.
--- NOTE | 2025-02-04 11:48 | W.PM.OPN ---
Operative Note Operative Note Date of Service: 02/04/25 Narrative: Procedure performed: C7-T1 Preop diagnosis: Cervical radiculitis Postop diagnosis: The same Anesthesia: Mac After informed consent was obtained patient was brought into the procedure room and placed in the prone position procedure table. Skin over cervicothoracic junction was prepped and draped in the usual sterile manner. C7-T1 interlaminar space was visualized utilizing fluoroscopy. After skin was anesthetized with lidocaine, 3.5 in 20 gauge Tuohy needle was introduced percutaneously and advanced superior edge of the T1 lamina. Needle was then slowly advanced into the epidural space utilizing loss of resistance technique. Once in place, needle placement was verified utilizing 3 cc of Omnipaque contrast solution. Good epidural spread was visualized. After negative aspiration for blood or cerebrospinal fluid, total volume of 5 cc containing 40 mg of triamcinolone and normal saline solution was injected. Procedure performed: Bilateral L4 transforaminal epidural steroid injection Preop diagnosis: Lumbar radiculitis Postop diagnosis: The same Anesthesia: Mac After informed consent was obtained, patient was placed on the procedure table in a prone position. Skin over lumbosacral area was prepped and draped in usual sterile manner. Right L4 pedicle was visualized utilizing fluoroscopy. 5 inch 22 gauge spinal needle was introduced percutaneously and advanced towards the pedicle at about 6 o'clock position. Once level of neural foramina was reached, needle placement was verified utilizing 3 cc of Omnipaque contrast solution. Excellent flow through the neural foramina and epidural spread was identified without evidence of vascular uptake. Total volume of 6 cc containing 2 cc of 1% lidocaine, 40 mg of triamcinolone and normal saline solution were injected after negative aspiration for blood and cerebrospinal fluid. Identical procedure was repeated on the opposite side. Radiation exposure was documented in the chart.
[2025-02-04] MEDS: Lactated Ringers 1,000 ML 100 ML IVCONT (11:59)
[2025-02-04 12:29] VITALS: BP 99/44; PULSE 89; RESP 16; TEMP 36.4; O2SAT 98
[2025-02-04 12:43] VITALS: BP 104/52; PULSE 95; RESP 19; TEMP 36.4; O2SAT 100
[2025-02-04 12:47] VITALS: BP 104/62; PULSE 98; RESP 20; TEMP 36.2; O2SAT 99
== END 2025-02-04 14:15 | disposition home or self-care (01) ==
PROVIDERS: PCP Internal Medicine; Visit Provider Physical Medicine & Rehabilitation
PROC: (CPT 62321; principal; 2025-02-04 12:10)
PROC: (CPT 62321; 2025-02-04 12:10)
DX: M54.12 Radiculopathy, cervical region (principal); G89.4 Chronic pain syndrome; M54.16 Radiculopathy, lumbar region; G62.0 Drug-induced polyneuropathy; G63 Polyneuropathy in diseases classified elsewhere; T45.1X5A Adverse effect of antineoplastic and immunosuppressive drugs, initial encounter; C80.1 Malignant (primary) neoplasm, unspecified; J44.9 Chronic obstructive pulmonary disease, unspecified; Z99.81 Dependence on supplemental oxygen; Z85.3 Personal history of malignant neoplasm of breast; Z79.899 Other long term (current) drug therapy; Z99.89 Dependence on other enabling machines and devices; Z90.12 Acquired absence of left breast and nipple; Z92.3 Personal history of irradiation; Z79.811 Long term (current) use of aromatase inhibitors; Z79.891 Long term (current) use of opiate analgesic; Z87.891 Personal history of nicotine dependence
CPT/HCPCS: 62321; 64483; J2003; J2250; J3010; J3301; Q9967

== ENCOUNTER → 2025-02-04 10:58 | Outpatient (BNV) | payer MEDICARE, MEDICAID, SELFPAY | PROVIDERS: PCP Internal Medicine; Visit Provider Physical Medicine & Rehabilitation | DX: M54.12 Radiculopathy, cervical region (principal); M54.16 Radiculopathy, lumbar region | CPT/HCPCS: 62321; 64483 ==